=== PATIENT | male | born 1950 | race Caucasian/White ===

== ENCOUNTER 2020-05-19 09:33 | Emergency (ER) | payer MEDICARE ==
[~2020-05-19] VITALS: Ht 175.3 cm; Wt 80.7 kg
--- OUTSIDE RECORDS SUMMARY | 2020-05-19 10:08 | XMS REPORT | Clinical Summary ---
Author Author KAYA [facility] Address Unknown Phone Unavailable Care Team Providers Care Aircraft Armorer Name Role Phone Carrie Gaston MD PCP Unavailable Allergies No Known Allergies Medications End Date Status Medication Sig Dispensed Refills Start Date Active HYDROcodone-acetaminophen Take 1 tablet 0 01/07 (NORCO 10-325) 10-325 mg by mouth 9 per tablet every 4 (four) hours as needed . Active tamsulosin (FLOMAX) 0.4 Take 1 tablet 0 01/31/ mg Cap 24 hr capsule by mouth 2 9 (two) times daily. Active polyethylene glycol Take 17 g by 0 (GLYCOLAX) 17 gram packet mouth daily. Active ondansetron (ZOFRAN) 8 MG Take 8 mg by 0 tablet mouth daily as needed for Nausea . Active morphine (MSIR) 30 MG Take 60 mg by 0 tablet mouth every 4 (four) hours as needed for Pain . Active cloNIDine HCL (CATAPRES) Take 0.2 mg 0 0.2 MG tablet by mouth 2 (two) times daily as needed (for systolic BP > 140) . Active lisinopril-hydroCHLOROthi Take 1 tablet 0 azide by mouth (PRINZIDE,ZESTORETIC) daily. 20-12.5 mg per tablet Active celecoxib (CELEBREX) 200 Take 200 mg 0 MG capsule by mouth every 12 (twelve) hours as needed for Pain. Active senna-docusate (SENOKOT Take 1 tablet 30 tablet 0 S) 8.6-50 mg per tablet by mouth 2 0 (two) times daily as needed for Constipation. 06/30/2019 Discontinued bicalutamide (CASODEX) 50 Take 50 mg by 0 01/07201 MG tablet mouth daily. 9 06/30/2019 Discontinued lisinopril-hydroCHLOROthi Take 1 tablet 0 02/0 6201 azide by mouth 2 9 (PRINZIDE,ZESTORETIC) (two) times 20-25 mg per tablet daily . 06/30/2019 Discontinued bicalutamide (CASODEX) 50 Take 50 mg by 0 05/1 6201 MG tablet mouth daily. 9 04/26/2020 Discontinued senna (SENOKOT) 8.6 mg Take 1 tablet 0 tablet by mouth daily. 04/23/2020 Discontinued loratadine (CLARITIN Take by mouth 0 ORAL) daily. 04/26/2020 Discontinued acetaminophen (TYLENOL) Take 500 mg 0 500 MG tablet by mouth every 6 (six) hours as needed for Pain. 07/01/2019 Discontinued levoFLOXacin (LEVAQUIN) Take 500 mg 0 500 MG tablet by mouth daily. 07/01/2019 Discontinued lisinopril-hydroCHLOROthi Take 1 tablet 0 azide by mouth 2 (PRINZIDE,ZESTORETIC) (two) times 20-12.5 mg per tablet daily. 04/26/2020 Discontinued predniSONE (DELTASONE) 5 Take 5 mg by 0 MG tablet mouth 2 (two) times daily . 04/27/2020 Discontinued oxybutynin (DITROPAN) 5 Take 5 mg by 0 MG tablet mouth 3 (three) times daily . 07/01/2019 Discontinued celecoxib (CELEBREX) 200 Take 200 mg 0 MG capsule by mouth. Active Problems Problem Noted Date Acute lower GI bleeding 04/26/2020 Acute blood loss anemia 04/26/2020 Essential hypertension 04/26/2020 Prostate cancer metastatic to bone 04/26/2020 Chronic pain due to malignant neoplastic disease Chronic hepatitis C 04/26/2020 Chronic retention of urine s/p suprapubic catheter in place 04/26/2020 Resolved Problems Problem Noted Date Resolved Date Symptomatic anemia 04/23/2020 04/26/2020 GI bleed 04/23/2020 04/26/2020 NORMA (acute kidney injury) 07/01/2019 04/26/2020 Abnormal DKD-gv-pvcccrbeyi ratio, elevated 07/01/2019 04/26/2020 Encounters Care Team Description Date Type Specialty Mima Marrero MD 04/25/2020 Anesthesia Gastroenterology Maury Fuentes MD COLONOSCOPY,BIOPSY 04/25/2020 Surgery Gastroenterology Evelyn Lam MD UPPER ENDOSCOPY 04/24/2020 Surgery Gastroenterology Heidy Persaud, RICKY 04/24/2020 Anesthesia Gastroenterology Event 04/24/2020 Travel Marcelina Mcguire MD Lothian, Amy Catherine, MD Quadri, Syed M., MD Generalized weakness (Primary Dx); Other fatigue; Gastrointestinal hemorrhage, unspecified gastrointestinal hemorrhage type; Symptomatic anemia 04/23/2020 Hospital General Internal Tx dicine - Encounter 04/27/2020 04/23/2020 Orders Only General Internal Tx Dakota Romero MD Hite, Wayne K., DO NORMA (acute kidney injury) (HCC) (Primary Dx) 06/29/2019 Hospital Cardiology - Encounter 07/01/2019 06/29/2019 Travel after 05/19/2019 Social History Date Tobacco Use Types Packs/Day Years Used Unknown If Ever Smoked Smokeless Tobacco: Snuff Current User Sex Assigned at Date Recorded Not on file Industry Job Start Date Occupation Not on file Not on file Not on file Travel End Travel History Travel Start No recent travel history available. Last Filed Vital Signs Time Taken Vital Sign Reading 04/27/2020 7:58 AM CDT Blood Pressure 162/74 04/27/2020 7:58 AM CDT Pulse 68 04/27/2020 7:58 AM CDT Temperature 36.5 C (97.7 F) 04/27/2020 7:58 AM CDT Respiratory Rate 18 04/27/2020 7:58 AM CDT Oxygen Saturation 100% - Inhaled Oxygen - Concentration 07/01/2019 8:00 AM CDT Weight 82.4 kg (181 lb 9.6 oz) 06/30/2019 2:00 AM CDT Height 152.4 cm (5') 07/01/2019 8:00 AM CDT Body Mass Index 35.47 Plan of Treatment Not on file Procedures Comments Procedure Name Priority Date/Time Associated Diag nosis RHYTHM STRIP - SCAN 04/29/2020 12:20 PM CDT REPORT OF PROCEDURE - 04/29/2020 ENDOSCOPY SCAN 10:00 AM CDT HEMOGLOBIN AND HEMATOCRIT Routine 04/27/2020 4:16 AM CDT HEMOGLOBIN AND HEMATOCRIT Routine 04/26/2020 12:47 PM CDT CBC W/PLT COUNT & AUTO Routine 04/26/2020 DIFFERENTIAL 3:55 AM CDT CBC W/PLT COUNT & AUTO Routine 04/26/2020 DIFFERENTIAL 3:55 AM CDT TRANSFUSION SERVICE 04/25/2020 REPORT - SCAN 6:02 PM CDT REPORT OF PROCEDURE - 04/25/2020 ENDOSCOPY URL 11:56 AM CDT TISSUE EXAM AP Routine 04/25/2020 11:48 AM CDT COLONOSCOPY,BIOPSY 04/25/2020 Gastrointestinal 11:00 AM CDT hemorrhage associated with other gastritis HEMOGLOBIN AND HEMATOCRIT STAT 04/25/2020 10:49 AM CDT CBC W/PLT COUNT & AUTO Routine 04/25/2020 DIFFERENTIAL 4:16 AM CDT CBC W/PLT COUNT & AUTO Routine 04/25/2020 DIFFERENTIAL 4:16 AM CDT BASIC METABOLIC PANEL (7) Routine 04/25/2020 4:16 AM CDT PREPARE LEUKO-REDUCED RBC Routine 04/24/2020 11:54 PM CDT TRANSFUSION SERVICE 04/24/2020 REPORT - SCAN 6:02 PM CDT REPORT OF PROCEDURE - 04/24/2020 ENDOSCOPY URL 9:56 AM CDT REPORT OF PROCEDURE - 04/24/2020 ENDOSCOPY URL 9:53 AM CDT TISSUE EXAM AP Routine 04/24/2020 9:42 AM CDT COLONOSCOPY,BIOPSY 04/24/2020 Anemia, unspecifie d type 9:30 AM CDT UPPER ENDOSCOPY 04/24/2020 Anemia, unspecified type 9:30 AM CDT CBC W/PLT COUNT & AUTO Routine 04/24/2020 DIFFERENTIAL 5:18 AM CDT CBC W/PLT COUNT & AUTO Routine 04/24/2020 DIFFERENTIAL 5:18 AM CDT BASIC METABOLIC PANEL (7) Routine 04/24/2020 5:18 AM CDT HEMOGLOBIN AND HEMATOCRIT Routine 04/23/2020 10:59 PM CDT TRANSFUSE LEUKO-REDUCED Routine 04/23/2020 RED BLOOD CELLS 8:37 PM CDT SARS-COV2/RT-PCR ([facility] & STAT 04/23/2020 REF LABS) 1:18 PM CDT TRANSFUSE LEUKO-REDUCED Routine 04/23/2020 RED BLOOD CELLS 1:05 PM CDT TROPONIN I STAT 04/23/2020 1:02 PM CDT ABORH, MANUAL Routine 04/23/2020 5:27 AM CDT TROPONIN I STAT 04/23/2020 5:27 AM CDT TYPE AND SCREEN, STAT 04/23/2020 AUTOMATED 3:47 AM CDT ECG 12-LEAD Routine 04/23/2020 3:43 AM CDT CBC W/PLT COUNT & AUTO STAT 04/23/2020 DIFFERENTIAL 2:43 AM CDT PROTHROMBIN TIME/INR STAT 04/23/2020 2:43 AM CDT COMPREHENSIVE METABOLIC STAT 04/23/2020 PANEL 2:43 AM CDT CBC W/PLT COUNT & AUTO STAT 04/23/2020 DIFFERENTIAL 2:43 AM CDT RHYTHM STRIP - SCAN 07/07/2019 11:16 AM CDT BASIC METABOLIC PANEL (7) Routine 07/01/2019 6:02 AM CDT RAPID INFLUENZA A&B Routine 06/30/2019 SCREEN 4:11 PM CDT RESPIRATORY PANEL [facility] Routine 06/30/2019 4:06 PM CDT URINALYSIS W/ REFLEX Routine 06/30/2019 URINE CULTURE 2:51 AM CDT URINE CULTURE Routine 06/30/2019 2:51 AM CDT BLOOD CULTURE Routine 06/30/2019 2:20 AM CDT CBC W/PLT COUNT & AUTO Routine 06/30/2019 DIFFERENTIAL 2:10 AM CDT LACTIC ACID, VENOUS Routine 06/30/2019 2:10 AM CDT CBC W/PLT COUNT & AUTO Routine 06/30/2019 DIFFERENTIAL 2:10 AM CDT BASIC METABOLIC PANEL (7) Routine 06/30/2019 2:10 AM CDT BLOOD CULTURE Routine 06/30/2019 2:10 AM CDT after 05/19/2019 Results * RHYTHM STRIP - SCAN (04/29/2020 12:20 PM CDT) Only the most recent of 2 results within the time period is included. Narrative Performed At This result has an attachment that is n ot available. * EKG-SCANNED (04/29/2020 10:00 AM CDT) Narrative Performed At This result has an attachment that is n ot available. * Hemoglobin and hematocrit (04/27/2020 4:16 AM CDT) Only the most recent of 4 results within the time period is included. Hemoglobin 7.7 (L) 13.7 - 17.5 GM/DL [facility] Hematocrit 25.2 (L) 40.1 - 51.0 % [facility] Specimen Blood Narrative Performed At Cosmetics Machine Operator ID - [id number] [facility] Performing Organization Address City/State/Zipcode Ph one Number [address] [facility] [facility] * CBC with platelet count + automated diff (04/26/2020 3:55 AM CDT) Only the most recent of 5 results within the time period is included. WBC 3.8 3.5 - 10.5 K/L [facility] RBC 2.73 (L) 4.63 - 6.08 M/L [facility] Hemoglobin 7.1 (L) 13.7 - 17.5 GM/DL [facility] Hematocrit 23.5 (L) 40.1 - 51.0 % [facility] MCV 86.1 79.0 - 92.2 fL [facility] MCH 26.0 25.7 - 32.2 pg [facility] MCHC 30.2 (L) 32.3 - 36.5 GM/DL [facility] RDW 15.4 (H) 11.6 - 14.4 % [facility] Platelets 180 150 - 450 K/CU MM [facility] MPV 10.4 9.4 - 12.4 fL [facility] nRBC 0 0 - 0 /100 WBC [facility] % Neutros 77 % [facility] % Lymphs 12 % [facility] % Monos 8 % [facility] % Eos 3 % [facility] % Baso 1 % [facility] # Neutros 2.89 1.78 - 5.38 K/L [facility] # Lymphs 0.45 (L) 1.32 - 3.57 K/L [facility] # Monos 0.30 0.30 - 0.82 K/L [facility] # Eos 0.10 0.04 - 0.54 K/L [facility] # Baso 0.02 0.01 - 0.08 K/L [facility] Immature 1 0 - 1 % [facility] Granulocytes-Relative [facility] Specimen Blood Performing Organization Address City/State/Zipcode Ph one Number [facility] [address] [facility], [place] [facility] [facility] * TRANSFUSION SERVICE REPORT - SCAN (04/25/2020 6:02 PM CDT) Only the most recent of 2 results within the time period is included. Narrative Performed At This result has an attachment that is n ot available. * REPORT OF PROCEDURE - ENDOSCOPY URL (04/25/2020 11:56 AM CDT) Narrative Performed At This result has an attachment that is n ot available. * Tissue Exam (04/25/2020 11:48 AM CDT) Only the most recent of 2 results within the time period is included. Case Report Surgical Pathology [facility] TH Report [facility] Case: [id number] Authorizing Provider:Maury Beltran MDCollected: 04/25/2020 11:48 AM Ordering Location: [address] Received: 04/25/2020 03:45 PM Service Pathologist: Mihir Meade MD Specimen:Rectum, Rectum bx DIAGNOSIS RECTUM, BIOPSY: [facility] - CHRONIC RADIATION PROCTITIS [facility] Signing Pathologist Direct Phone Line: [phone] COMMENT Sections show rectal mucosa [facility] with mild increase in lamina [facility] propria fibrosis. There is no acute inflammation, architectural distortion, granulomas, dysplasia or malignancy. CPT Code(s) 76875 [facility] CLINICAL HISTORY GI bleed [facility] SPECIMEN SOURCE Rectum [facility] GROSS DESCRIPTION The specimen is received in [facility] one part labeled with the [facility] patient's name and MRN number corresponding to requisition slip with the same information. Received in formalin labeled "rectum" is a 0.3 x 0.2 x 0.2 cm santiago-pink irregular piece of tissue which is submitted entirely in cassette A1. MA/pl MICROSCOPIC DESCRIPTION The rectal biopsy shows [facility] nondysplastic colonic mucosa [facility] with dilated telengiectatic vessels and hyalinization. A fibrin thrombus is present in the superficial sections. Specimen Tissue Performing Organization Address City/State/Zipcode Ph one Number [address] [facility] * Basic Metabolic Panel (04/25/2020 4:16 AM CDT) Only the most recent of 4 results within the time period is included. Sodium 139 136 - 145 meq/L [facility] Potassium 4.4 3.5 - 5.1 meq/L [facility] Chloride 110 (H) 98 - 107 meq/L [facility] CO2 23 22 - 29 meq/L [facility] BUN 12 7 - 21 mg/dL [facility] Creatinine 1.06 0.57 - 1.25 mg/dL [facility] Glucose 86 70 - 105 mg/dL [facility] Calcium 7.6 (L) 8.4 - 10.2 mg/dL [facility] EGFR 69Comment: ESTIMATED GFR IS mL/min/1.73 sq m [facility] NOT ACCURATE CREATININE [facility] CLEARANCE IN PREDICTING GLOMERULAR FILTRATION RATE. ESTIMATED GFR IS NOT APPLICABLE FOR DIALYSIS PATIENTS. Specimen Blood Narrative Performed At Cosmetics Machine Operator ID - [id number] [facility] Performing Organization Address City/[facility] Ph one Number [facility] [address] [place], [place] [address] [facility] * Prepare Leuko-Red RBC (04/24/2020 11:54 PM CDT) CROSSMATCH COMPATIBLE SAFETRACE TX Unit ABO A Neg [facility]ET[facility] TX UNIT NUMBER [id number] [facility]ET[facility]ACE TX Status TX_TIMEINCHART [facility]ETRACE TX Blood Bank Product RED BLOOD CELLS SAFETRACE TX PRODUCT CODE [id number] SAFETRACE TX CROSSMATCH COMPATIBLE SAFETRACE TX Unit ABO A Neg SAFETRACE TX UNIT NUMBER [id number] SAFETRACE TX Status TX_TIMEINCHART SAFETRACE TX Blood Bank Product RED BLOOD CELLS [place] PRODUCT CODE [id number] [facility] [place] Specimen Other Performing Organization Address City/State/Zipcode Ph one Number [place] * REPORT OF PROCEDURE - ENDOSCOPY URL (04/24/2020 9:56 AM CDT) Narrative Performed At This result has an attachment that is n ot available. * REPORT OF PROCEDURE - ENDOSCOPY URL (04/24/2020 9:53 AM CDT) Narrative Performed At This result has an attachment that is n ot available. * Transfuse Leuko-Red RBC (04/23/2020 8:37 PM CDT) Only the most recent of 3 results within the time period is included. * SARS-CoV2/RT-PCR (Asymptomatic ONLY) (04/23/2020 1:18 PM CDT) SARS-COV2/RT-PCR Negative Not Detected, Negative, [facility] See external report for [facility] linked test SARS-COV-[address] [facility] MARTIR [facility] Specimen Other Narrative Performed At Negative result for this test determine s that SARS-CoV-2 RNA was not present in [facility] the specimen above the Limit of Detecti on (LOD).However, Negative results do [facility] not preclude SARS-CoV-2 infection and s hould not be used as the sole basis for treatment or patient management decisio ns. Negative results must be combined with clinical observations, patient his tory, and epidemiological information. A false negative result may occur if a sp ecimen is improperly collected, transported or handled.A false nega tive result should be considered if patient's recent exposures or clinical presentation indicate that COVID-19 (SARS-CoV-2) is likely and diagnostic t ests for other causes of illness are negative.Re-testing should be consi dered in cases of suspected false negatives. The limit of detection for this assay i s 800 copies/mL. This SARS CoV-2 test is a real-time RT- PCR test intended for the qualitative detection of nucleic acid from SARS-CoV -2 in a nasopharyngeal swab specimen collected from individuals suspected of COVID-19 by their healthcare provider. This test has not been Food and Drug Ad ministration (FDA) cleared or approved.This is a modified version of an approved Emergency Use Authorization (EUA) and is in the proce ss of review by the FDA. Once authorized by the FDA, the issued EUA w ill be effective until the declaration that circumstances exist justifying the authorization of the emergency use of in vitro diagnostic tests for detection an d/or diagnosis of COVID-19 is terminated under Section 564(b)(2) of the Act or t he EUA is revoked under Section 564(g) of the Act. Fact Sheet for Healthcare Providers: https://www.[employer]/sites/default/files/product/documents/Fact_Sheet_HC_Provi ipmi_Vhyr_YTRB-XkD-0.pdf Fact Sheet for Healthcare Patients: https://www.[employer]/sites/default/files/product/documents/Fact_Sheet_Patients _Glwh_FPXC-WrW-4.pdf Performing Laboratory: [address] [place] [address] Performing Organization Address City/[facility] one Number [place] [phone] [place] [address] * Troponin I (04/23/2020 1:02 PM CDT) Only the most recent of 2 results within the time period is included. Troponin I <0.01 0.00 - 0.03 ng/mL [facility] Specimen Blood Narrative Performed At Troponin I (TnI) levels must be interpreted in the co ntext of the presenting [facility] symptoms and the clinical findings. Elevated TnI leve ls indicate myocardial [facility] damage, but are not specific for ischem ic heart disease. Elevated TnI levels are seen in patients with other cardiac con ditions (including myocarditis and congestive heart failure), and slight T nI elevations occur in patients with other conditions, including sepsis, andres al failure, acidosis, acute neurological disease, and persistent tachyarrhythmia . Cosmetics Machine Operator ID - [id number] Performing Organization Address [facility] one Number [place] [address] [facility] * ABORH, manual (04/23/2020 5:27 AM CDT) ABO Grouping A [facility] Rh Factor NEG [facility] Specimen Blood Performing Organization Address [facility] Ph one Number [address] [place] [address] * Type and screen, automated ([facility] and [facility] only) (04/23/2020 3:47 AM CDT) ABO/RH AUTOMATED (BEAKER) A NEGATIVE [facility] Ab Scrn NEGATIVE [facility] Specimen Blood Performing Organization Address [facility] Ph one Number [id number] [place] [address] * ECG 12 lead (04/23/2020 3:43 AM CDT) Specimen Narrative Performed At Ventricular Rate 67 BPM GE MUSE Atrial Rate 67 BPM P-R Interval 214 ms QRS Duration 90 ms Q-T Interval 398 ms QTC Calculation(Bazett) 420 ms P [place] 90 degrees R [place] 51 degrees T [place] 52 degrees Sinus rhythm with 1st degree A-V block Otherwise normal ECG No previous ECGs available Confirmed by MD FLORES YOCHAI ([id number] ) on 04/26/2020 5:49:09 PM Procedure Note Interface, External Ris In - 04/26/2020 5:49 PM CDT Ventricular Rate 67 BPM Atrial Rate 67 BPM P-R Interval 214 ms QRS Duration 90 ms Q-T Interval 398 ms QTC Calculation(Bazett) 420 ms P [place] 90 degrees R [place] 51 degrees T [place] 52 degrees Sinus rhythm with 1st degree A-V block Otherwise normal ECG No previous ECGs available Confirmed by MD FLORES YOCHAI ([id number]) on 04/26/2020 5:49:09 PM Performing Organization Address [facility] Ph one Number GE MUSE * PT/INR (04/23/2020 2:43 AM CDT) Protime 14.4 (H) 11.9 - 14.2 seconds [facility] INR 1.15 <=5.90 [facility] Specimen Blood Narrative Performed At Effective 02/04/2019: PT Reference Range Change [facility] New: 11.9-14.2Previous: 11.7-14.7 [facility] MEDICAL CE NTER RECOMMENDED COUMADIN/WARFARIN INR THERA PY RANGES STANDARD DOSE: 2.0-3.0Includes: PRO PHYLAXIS for venous thrombosis, systemic embolization; TREATMENT for venous thro mbosis and/or pulmonary embolus. HIGH RISK: Target INR is 2.5-3.5 for pa tients wiht mechanical heart valves. Performing Organization Address City/State/Zipcode Ph one Number [address] [facility] * Comprehensive metabolic panel (04/23/2020 2:43 AM CDT) Protein, Total 6.5 6.0 - 8.3 gm/dL [facility] Albumin 3.3 (L) 3.5 - 5.0 g/dL [facility] Alkaline Phosphatase 71 40 - 150 U/L [facility] Total Bilirubin 0.2 0.2 - 1.2 mg/dL [facility] Sodium 136 136 - 145 meq/L [facility] Potassium 4.2 3.5 - 5.1 meq/L [facility] Chloride 106 98 - 107 meq/L [facility] CO2 23 22 - 29 meq/L [facility] BUN 22 (H) 7 - 21 mg/dL [facility] Creatinine 1.19 0.57 - 1.25 mg/dL [facility] Glucose 129 (H) 70 - 105 mg/dL [facility] Calcium 8.0 (L) 8.4 - 10.2 mg/dL [facility] AST 20 5 - 34 U/L [facility] ALT 9 6 - 55 U/L [facility] EGFR 61Comment: ESTIMATED GFR IS mL/min/1.73 sq m [facility] NOT ACCURATE CREATININE [facility] CLEARANCE IN PREDICTING GLOMERULAR FILTRATION RATE. ESTIMATED GFR IS NOT APPLICABLE FOR DIALYSIS PATIENTS. Specimen Blood Narrative Performed At Cosmetics Machine Operator ID - [id number] [facility] Performing Organization Address [facility] Ph one Number [facility] [address] [place] [address] [facility] * Rapid Influenza A&B Screen (06/30/2019 4:11 PM CDT) Rapid Influenza A Antigen Negative Negative, Inconclusi ve [facility] Rapid influenza B Antigen Negative Negative, Inconclusi ve [facility] Specimen Nasal Performing Organization Address [facility] Ph one Number [facility] [address] [place] [address] [facility] * Respiratory Panel [facility] (06/30/2019 4:06 PM CDT) Human Metapneumovirus Not detected Not detected, Equivocal [facility] Rhinovirus Not detected Not detected, Equivocal [facility] Influenza A Not detected Not detected, Equivocal [facility] INFLUENZA A (NO SUBTYPE) [facility] Influenza A subtype H1 [facility] Influenza A Subtype H3 [facility] Influenza A Subtype [facility] H1-2009 [facility] Influenza B Not detected Not detected, Equivocal [facility] Respiratory Syncytial Not detected Not detected, Equivocal [facility] Virus [facility] Parainfluenza Virus 1 Not detected Not detected, Equivocal [facility] Parainfluenza Virus 2 Not detected Not detected, Equivocal [facility] Parainfluenza virus 3 Not detected Not detected, Equivocal [facility] Parainfluenza Virus 4 Not detected Not detected, Equivocal [facility] Adenovirus Not detected Not detected, Equivocal [facility] Coronavirus 229E Not detected Not detected, Equivocal [facility] Coronavirus HKU1 Not detected Not detected, Equivocal [facility] Coronavirus NL63 Not detected Not detected, Equivocal [facility] Coronavirus OC43 Not detected Not detected, Equivocal [facility] [facility] Bordetella Pertussis Not detected Not detected, [facility] Chlamydophila Pneumoniae Not detected Not detected, Equivoc al [facility] Mycoplasma Pneumoniae Not detected Not detected, [facility] Specimen Nasopharyngeal Narrative Performed At Other viruses and bacteria not targeted by this PCR p olya cannot be excluded; [facility] therefore clinical correlation and follow up of serol ogy, culture results, and [facility] other molecular studies is required. Th e results are not intended to be used as the sole means for clinical diagnosis o r patient management decisions. This sample was tested at the [facility] using the TrademarkiaArray Respiratory Panel. It is FDA cleared and has been verified and approved by the [facility] Molecular Diagnos tics Laboratory for clinical use on nasopharyngeal swab specimens. The performance of the FilmArray RP has not been established in individuals who received influenza vaccine.Recent a dministration of a nasal influenza vaccine may cause false positive result s for Influenza A and/or Influenza B. Performing Organization Address City/State/Zipcode Ph one Number [facility] [address] [place], [place] [address] [facility] * Urinalysis w/Microscopic + Reflex to Culture (06/30/2019 2:51 AM CDT) Color, UA Yellow [facility] Clarity, UA Hazy [facility] Specific [place], UA 1.021 1.001 - 1.035 [facility] pH, UA 6.0 5.0 - 8.[address] [facility] Protein, UA 200 mg/dL (A) Negative [facility] Glucose, UA Negative Negative [facility] Ketones, UA Negative Negative [facility] Bilirubin, UA Negative Negative [facility] Blood, UA Moderate (A) Negative [facility] Nitrite, UA Negative Negative [facility] Leukocytes, UA Large (A) Negative [facility] Urobilinogen, UA 0.2 0.2 - 1.0 mg/dL [facility] RBC, UA 20 /HPF [facility] WBC, UA 77 /HPF [facility] Mucus Few [facility] Squam Epithel, UA 1 /HPF [facility] Hyaline Casts, UA 6 /LPF [facility] Specimen Source [facility] Specimen Urine - Urine, Suprapubic Aspirate Performing Organization Address [facility] one Number [place] [address] [facility] * Urine culture (06/30/2019 2:51 AM CDT) Result No growth [facility] Specimen Urine - Urine, Suprapubic Aspirate Performing Organization Address City/[facility] [place] one Number [place] [address] [facility] * Blood Culture - Routine (Left Venipuncture) (06/30/2019 2:20 AM CDT) Only the most recent of 2 results within the time period is included. Result No growth in [address] [facility] Specimen Blood Performing Organization Address City/[facility]/Zipcode Ph one Number [facility] [address] [place], [place] [address] [facility] [place] * Lactic acid, venous (06/30/2019 2:10 AM CDT) Lactate, Venous 1.3 0.5 - 2.2 mmol/L [facility] Specimen Blood Performing Organization Address City/[facility] Ph one Number [facility] [address] [place], [place] [address] [facility] CENTER after 05/19/2019 Insurance Payer Benefit Subscriber ID Type Phone Address Plan / Group [employer] K[employer]ARE xxxxxxxxxxx MEDICARE ADV CDC REVIEW CDC REVIEW xxxxxxxx [address] [place] [address] [phone] Advance Directives For more information, please contact: [address] [phone] Date Inactivated Comments Code Status Date Activated 04/27/2020 12:28 PM Full Code 04/23/2020 5:08 AM This code status was determined by: Patient 07/01/2019 7:17 PM Partial Code 06/30/2019 1:11 AM This code status was determined by: Patient Drug Protocol After Arrest Occurs? Yes Mechanical Ventilation with Intubation? No Bag/Mask? No Internal/External Pacemaker? No Transfer to Critical Care? No Chest Compressions? No Defibrillation/Cardioversion? No
--- OUTSIDE RECORDS SUMMARY | 2020-05-19 10:08 | XMS REPORT | Continuity of Care Document ---
Author Author [facility] t Organization [facility] Address [address] [place] [address] Phone Unavailable Care Team Providers Care Cardiovascular Technologist Name Role Phone NONSTAFF PCP Unavailable Shayla BENNETT, Jennifer Hewitt Attphys [phone] Jess Denise MD Attphys [phone] Freddy Givens MD Attphys Vikram Marrero MD Attphys Kasia Beltran MD Attphys Cindi Persaud CRNA Attphys [phone] Kasia Lam MD Attphys JENNIFER MCGUIRE Attphys Unavailable CARIN ANN Attphys Unavailable Carin Ann MD Attphys Maria G Shah DO Attphys PB NOBLE Attphys Unavailable VU, BRETT TRI Attphys Unavailable JESS DENISE Admphys Unavailable Maria G SHAH Admphys Unavailable VU, BRETT TRI Admphys Unavailable Payers Payer Name Policy Type Policy Number Effective Date Expiration Date Heather MURRAYCAREKELSEYCARE MEDICARE ADVxxxxxxxxxxx xxxxxxxxxxx [facility] CDC REVIEWC REVIEWxxxxxxxxPO MARIYA HERNANDEZ [phone] [facility] [employer] Medicare Advantage [id number] 2016 00:0 0:00 [facility] Problems Condition Name Condition Details Condition Category Status Onset Date Resolution Date Last Treatment Date Treating Clinician Comments Source Acute lower GI bleeding Acute lower GI bleeding Disease Active 2020-04-26 00:00:00 [facility] Acute blood loss anemia Acute blood loss anemia Disease Active 2020-04-26 00:00:00 [facility] Essential hypertension Essential hypertension Disease Active 2020-04-26 00:00:00 [facility] 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 Disease Active 2020-04-26 00:00:00 [facility] Chronic pain due to malignant neoplastic disease Chron ic pain due to malignant neoplastic disease Disease Active 2020-04-26 00:00:00 [facility] Chronic hepatitis C Chronic hepatitis C Disease Active 2020-04-26 00:00 :00 [facility] Chronic retention of urine s/p suprapubic catheter in place Chronic retention of urine s/p suprapubic catheter in place Disease Active 2020-04-26 00:00:0 0 [facility] Symptomatic anemia Symptomatic anemia Disease Resolved 2020-04-09 5 00:00:00 2020-04-26 00:00:00 2020-04-26 08:53:52 [facility] GI bleed GI bleed Disease Resolved 2020-04-23 00:00:00 2020-04-26 00:00:00 2020-04-26 08:53:36 [facility] History of Past Illness Condition Name Condition Details Condition Category Status Onset Date Resolution Date Last Treatment Date Treating Clinician Comments Source NORMA (acute kidney injury) NORMA (acute kidney injury) Disease Re solved 2019-07-01 00:00:00 2020-04-26 00:00:00 2020-04-26 08:52:48 [facility] Abnormal MHD-wm-dghgghsdva ratio, elevated Abnormal BU H-sb-wymtgqefsm ratio, elevated Disease Resolved 2019-07-01 00:00:00 2020-04-26 00:00:00 2 08:52:50 [facility] Allergies, Adverse Reactions, Alerts Allergy Name Allergy Type Status Severity Reaction(s) Onset Date Inacti ve Date Treating Clinician Comments Source No Known Allergies DA Active U 2019-04-26 00:00:00 [facility] No Known Allergies DA Active U 2013-03-23 00:00:00 [facility] Social History Social Habit Start Date Stop Date Quantity Comments Source History of tobacco use Snuff User [facility] Sex Assigned At [facility] Medications Ordered Medication Name Filled Medication Name Start Date Stop Da te Current Medication? Ordering Clinician Indication Dosage Frequency Signature (SIG) Comments Components Source oxybutynin (DITROPAN) 5 MG tablet 2020-04-27 09:34:00 2019 00:00:00 No 5mg [id number] Take 5 mg by mouth 3 (three ) times daily . [facility] senna-docusate (SENOKOT S) 8.6-50 mg per tablet 2020-04-27 00:00 :00 Yes 1{tbl} Take 1 tablet by mouth 2 (two) times edwin ly as needed for Constipation. [facility] senna (SENOKOT) 8.6 mg tablet 2020-04-26 11:57:40 2020-04-26 00: 00:00 No 1{tbl} QD Take 1 tablet by mouth daily. [facility] ondansetron (ZOFRAN) 8 MG tablet 2020-04-26 11:57:32 Yes 8mg Take 8 mg by mouth daily as needed for Nausea . [facility] morphine (MSIR) 30 MG tablet 2020-04-26 11:57:32 Yes 60mg Take 60 mg by mouth every 4 (four) hours as needed for Pain . [facility] cloNIDine HCL (CATAPRES) 0.2 MG tablet 2020-04-26 11:57:32 Yes .2mg Take 0.2 mg by mouth 2 (two) times daily as needed (for systolic BP > 140) . [facility] predniSONE (DELTASONE) 5 MG tablet 2020-04-26 11:57:31 202 00:00:00 No 5mg Q.5D Take 5 mg by mouth 2 (two) times daily . [facility] acetaminophen (TYLENOL) 500 MG tablet 2020-04-26 11:55 :09 2020-04-26 00:00:00 No 500mg Take 500 mg by mouth every 6 (six) hours as needed for Pain. [facility] lisinopril-hydroCHLOROthiazide (PRINZIDE,ZESTORETIC) 20-12.5 mg per tablet 2020-04-23 05:05:19 Yes 1{tbl} QD Take 1 tablet by m outh daily. [facility] celecoxib (CELEBREX) 200 MG capsule 2020-04-23 05:05:19 Yes 200mg Take 200 mg by mouth every 12 (twelve) hours as needed for Pain. [facility] loratadine (CLARITIN ORAL) 2020-04-23 05:02:52 2020-04-23 00:00: 00 No QD Take by mouth daily. [facility] levoFLOXacin (LEVAQUIN) 500 MG tablet 2019-07-01 14:34 :11 2019-07-01 00:00:00 No 500mg QD Take 500 mg by mouth daily. [facility] lisinopril-hydroCHLOROthiazide (PRINZIDE,ZESTORETIC) 20-12.5 mg per tablet 2019-07-01 14:34:11 2019-07-01 00:00:00 No 1{tbl} Q.5D Take 1 tablet by mouth 2 (two) times daily. [facility] celecoxib (CELEBREX) 200 MG capsule 2019-07-01 14:34:1 1 2019-07-01 00:00:00 No 200mg Take 200 mg by mouth. [facility] polyethylene glycol (GLYCOLAX) 17 gram packet 2019-06-29 22:45:2 1 Yes 17g QD Take 17 g by mouth daily. [facility] tamsulosin (FLOMAX) 0.4 mg Cap 24 hr capsule 2019-01-31 00:00:00 Yes 1{tbl} Q.5D Take 1 tablet by mouth 2 (two) times daily. [facility] bicalutamide (CASODEX) 50 MG tablet 2019-01-25 00:00:0 0 2019-06-30 00:00:00 No 50mg QD Take 50 mg by mouth daily. [facility] HYDROcodone-acetaminophen (NORCO 10-325) 10-325 mg per table t 2019-01-22 00:00:00 Yes 1{tbl} Take 1 tab let by mouth every 4 (four) hours as needed . [facility] bicalutamide (CASODEX) 50 MG tablet 2019-01-22 00:00:0 0 2019-06-30 00:00:00 No 50mg QD Take 50 mg by mouth daily. [facility] lisinopril-hydroCHLOROthiazide (PRINZIDE,ZESTORETIC) 20-25 m g per tablet 2018-10-15 00:00:00 2019-06-30 00:00:00 No 1{tbl} Q.5D Take 1 tablet by mouth 2 (two) times daily . [facility] Vital Signs Vital Name Observation Time Observation Value Comments Source Systolic blood pressure 2020-04-27 07:58:00 162 mm[Hg] [facility] Diastolic blood pressure 2020-04-27 07:58:00 74 mm[Hg] [facility] Heart rate 2020-04-27 07:58:00 68 /min [facility] Body temperature 2020-04-27 07:58:00 36.5 Chela [facility] Respiratory rate 2020-04-27 07:58:00 18 /min [facility] Oxygen saturation in Arterial blood by Pulse oximetry 04-27 07:58:00 100 /min [facility] r Body weight Measured 2019-07-01 08:00:00 82.373 kg [facility] BMI 2019-07-01 08:00:00 35.47 kg/m2 [facility] Body height 2019-06-30 02:00:00 152.4 cm [facility] Procedures Procedure Date / Time Performed Performing Clinician Sourc e RHYTHM STRIP - SCAN 2020-04-29 12:20:32 Provider, Coby garcia [facility] REPORT OF PROCEDURE - ENDOSCOPY SCAN 2020-04-29 10:00:52 Pro vider, Default Scanning [facility] HEMOGLOBIN AND HEMATOCRIT 2020-04-27 04:16:00 ToshaDavis Estelle [facility] HEMOGLOBIN AND HEMATOCRIT 2020-04-26 12:47:00 Tosha Davis Freddy [facility] CBC W/PLT COUNT & AUTO DIFFERENTIAL 2020-04-26 03:55:00 Tosha, Davis [facility] TRANSFUSION SERVICE REPORT - SCAN 2020-04-25 18:02:04 Provid er, Default Scanning [facility] REPORT OF PROCEDURE - ENDOSCOPY URL 2020-04-25 11:56:02 Maury Beltran [facility] TISSUE EXAM 2020-04-25 11:48:00 Maury Beltran [facility] COLONOSCOPY,BIOPSY 2020-04-25 11:00:00 Maury Beltran [facility] HEMOGLOBIN AND HEMATOCRIT 2020-04-25 10:49:00 Tosha Davsi Estelle [facility] BASIC METABOLIC PANEL (7) 2020-04-25 04:16:00 Alyse Denise [facility] CBC W/PLT COUNT & AUTO DIFFERENTIAL 2020-04-25 04:16:00 Alyse Denise [facility] PREPARE LEUKO-REDUCED RBC 2020-04-24 23:54:00 Marcelina Mcguire [facility] TRANSFUSION SERVICE REPORT - SCAN 2020-04-24 18:02:04 Provid er, Default Scanning [facility] REPORT OF PROCEDURE - ENDOSCOPY URL 2020-04-24 09:56:11 Tiago Lam [facility] REPORT OF PROCEDURE - ENDOSCOPY URL 2020-04-24 09:53:57 Tiago Lam [facility] TISSUE EXAM 2020-04-24 09:42:00 Evelyn Lam [facility] UPPER ENDOSCOPY 2020-04-24 09:30:00 Evelyn Lam [facility] COLONOSCOPY,BIOPSY 2020-04-24 09:30:00 Evelyn Lam [facility] BASIC METABOLIC PANEL (7) 2020-04-24 05:18:00 Evita, Sophy Patricia garcia [facility] CBC W/PLT COUNT & AUTO DIFFERENTIAL 2020-04-24 05:18:00 Evita Pedro welchn Effiong [facility] HEMOGLOBIN AND HEMATOCRIT 2020-04-23 22:59:00 Evita, Sophy Patricia [facility] TRANSFUSE LEUKO-REDUCED RED BLOOD CELLS 2020-04-23 20:37:33 Marcelina Mcguirebeth [facility] SARS-COV2/RT-PCR ([facility]) 2020-04-23 13:18:00 Donal Fournier [facility] TRANSFUSE LEUKO-REDUCED RED BLOOD CELLS 2020-04-23 13:05:57 [facility] 2020-04-23 13:02:00 Marcelina Mcguire [facility] TROPONIN I 2020-04-23 05:27:00 Marcelina Mcguire [facility] ABORH, MANUAL 2020-04-23 05:27:00 Heidy Mcclendon [facility] TYPE AND SCREEN, AUTOMATED 2020-04-23 03:47:00 Marcelina Mcguire [facility] ECG 12-LEAD 2020-04-23 03:43:53 Unknown, Hl7 [facility] COMPREHENSIVE METABOLIC PANEL 2020-04-23 02:43:00 Karen Gillespie [facility] PROTHROMBIN TIME/INR 2020-04-23 02:43:00 Misbah Gillespie [facility] CBC W/PLT COUNT & AUTO DIFFERENTIAL 2020-04-23 02:43:00 MichaelMisbah geronimo [facility] RHYTHM STRIP - SCAN 2019-07-07 11:16:12 ProviderCoby [facility] BASIC METABOLIC PANEL (7) 2019-07-01 06:02:00 Hipolito Shah CH I [facility] RAPID INFLUENZA A&B SCREEN 2019-06-30 16:11:00 Hipolito Shah HI [facility] RESPIRATORY PANEL [facility] 2019-06-30 16:06:00 Hipolito Shah [facility] URINE CULTURE 2019-06-30 02:51[facility]00 [facility]IN[facility] W/ REFLEX URINE CULTURE 2019-06-30 02:51:00 Heather [facility] BLOOD CULTURE 2019-06-30 02:20:00 Bean [facility] BLOOD CULTURE 2019-06-30 02:10:00 [facility] BASIC METABOLIC PANEL (7) 2019-06-30 02:10:00 Melanie [facility] LACTIC ACID, VENOUS 2019-06-30 02:10:00 [facility] CBC W/PLT COUNT & AUTO DIFFERENTIAL 2019-06-30 02:10:00 Bean [facility] Encounters Start Date/Time End Date/Time Encounter Type Admission Type Attendi [facility] Care Department Encounter ID Source 2019-06-29 18:36:00 2019-06-29 21:37:00 Departed Emergency Room 1 PB NOBLE [facility] [id number] [facility] Results Test Description Test Time Test Comments Results Result Comments Source Hemoglobin and hematocrit 2020-04-27 04:43:00 Test Item Hemoglobin (test code = 786-4) 7.7 13.7- 17.5 GM/DL L Hematocrit (test code = 4544-3) 25.2 % 40.1-51 L RAMIREZ (test code = RAMIREZ) Detention Deputy ID - [id number] Lab Interpretation (test code = 46254-3) Abnormal [facility] [id number] 04:43:00* Test Item Value Reference Range Interpretation Comments HEMOGLOBIN (BEAKER) (test code = 410) 7.7 GM/DL 13.7-17.5 L HEMATOCRIT (BEAKER) (test code = 411) 25.2 % 40.1-51.0 L Detention Deputy ID - [id number] 12 [id number] 17:49:11Interface, External Ris In - 04/26/2020 5:49 PM CDTVentricular Rate 67 BPMAtrial Rate 67 BPMP-R Interval 214 msQRS Duration 90 msQ-T Interval 398 msQTC Calculation(Bazett) 420 msP [place] 90 degreesR [place] 51 degreesT [place] 52 degreesSinus rhythm with 1st degree A-V blockOtherwise normal ECGNo previous ECGs availableConfirmed by MD MARK, CRISTOPHER ([id number]) on 04/26/2020 5:49:09 [facility] [id number] 13:09:00* Test Item Value Reference Range Interpretation Comments HEMOGLOBIN (BEAKER) (test code = 410) 7.5 GM/DL 13.7-17.5 L HEMATOCRIT (BEAKER) (test code = 411) 24.2 % 40.1-51.0 L Detention Deputy ID - [id number] [id number] 12:47:00* Test Item Value Reference Range Interpretation Comments Case Report (test code = 104) Surgical Pathology Repor t Case: [id number] Authorizing Provider: Maury Beltran MD Collected: 04/25/2020 11:48 AM Ordering Location: [address] Received: 04/25/2020 03:45 PM Service Pathologist: Mihir Meade MD Specimen: Rectum, Rectum bx DIAGNOSIS (test code = 3220) o9fjcGDtHVGez1tqCENdzAMkVkHcRrChUjDoGmtqhTBuJUcuhqOnXLkez0UvJ4VlGsBhCFaiwtPlECKj ApixtachLUBmSIK2roOlZCZeTFikMHSfRGmtPm0ruSMbfUplYuGbBCOoc8nwypDLycxgwRw4q7beEIIo BaG9pTIzHSgxA4cnwjZhbCNwDABjYXg8cZ67UDZkoZ 0fcONfETrbpcNdBcO8JRdmCDUrRbN0BVTxzDChNWFpC0tuAGIdQIhwZFZyDShtbAJlRXH2zVcis1P0xZ WomNOjcOgeQrYmFkDuGWPTr9CiRMu0kBpfX3OsIPOgQdC6vLOqXFDtKIktKDAeQSMamqK8jZ02GCgxdw R8eSPum6Wky17sa493fB9zgZHvMYU3UTUjMGEaaQAs PHAcIFZ2UIKoaBYhA6o1QhUfoJLlK8N9WzSqsCJwC1U0TkOihROqL9I9XsVtjKQnWSTluQEnLf5naYOt mMPakq5qfy72QXT7j6HqrDmbHMO1SYF2FrWrWd3upYZhUEMnVT2lRfGuxICoJMQuga55cCutTUcnjqPi wB7rBuOiFFFtjMEuSAGkFY1dpFByEGKkzH4eejydRV GbYqTmguoeRUKubHylgaJlCu3arPqvBCU8HGpuE0bbyO4xNbP7WRdfO5ivpK5dDIc2LOqspMF5GEBcfP 9iFR1cmxree9zwZaGpGW5abtade0ryUlJjHK5fzsb6e1jhWgIqRV1hhkinb2gaTnZwVHevJMQasufvGI Ste0RfrovvEZHkn1WaG3HugYkmP54xsSmdT14hLQMq mPozzE2qcXpdrK2hTzNnWyTlNPojiGbejZFhnacqIEdoliZsUOpjixepOPNiRSjfM7snOdHpAPWgeVzs TPaez5BoUMXaPECwBqEyKaYWXKRMXXCBLX2JR1s6OGDdhjOgZLUHPv5QSKSjVdUUJNQYLZ3XFPBVI1KS XEBNU3tcGWV9k8acgKIxYQFuvEQfVKNtMFyoagUnQZ WmRzxribedXSSqYWK4hoPxDWCnESjfJPUxATrpJz9jhWLhlGmmIpKfTQWoy7ikxtKTaprbpSl6m9frPU JdBsZ3eRPhBDhoB9ohrnOcaNFkYVRjIHy8iC80QASnpL9eaQUsIEumhjTqPqX3UDqeKZBlHcD1NZCuvI LkGKAgI2jbSBMpUNdjLEOzLTcqwROpGIZ9oLtst3J7 mXYakPYvdHbhAuIjKxLoYlHCp9DhJRu4bIiwR2KaMFAePhI6uWOyZEYiEOtnAFMsZWNznaA1qF71QSyv udD1yWTrp4Tbc27ty136mI4eeWWnLHY5YVJrXXZnvOAtUAFtDGB1LMXcxQGmM8ggSNXlRR4hkdozNIva WDtfCEMvhGJ7ZWZdrZNoL5MjKQGiVQtcHGIunuu4Ee WqUu7liQCbiWsxOQaeq8luq1qyyBWbXyp5HLUcCnYuFrxsSRcnl2Svh3wtWLNfls8xKPJ3oNAalZrur0 E8nRDaWLJcwAErIXIrVI5epHEwKGStsM9pppahATEmKhMjpnxyNHWwtXthdxTyPu7lfYvdMWU2THclS5 wxwY3yTpK2AKgkG1zpgV3eUNc7ZHbrGXWegND9gsJ8 SOMtuRBaS4ZpzV5lHHBdTH8juoj3c3igPOD0CTfbLFWmJsV5ynO3FCUzvPLuXWJxtVifSSyyw698MPM7 ThTkCIYow9NwS3BxoYgtY37ndGdkJ75cOKPjcVszuC2feOaimM8zArMzFkFbYStveWvgIY7oZKDqV9ge fVKcYFKnOILsN3dcAfIozA5vfCthSZegyiOfLKVzCh d7WELogITjZLJoJcw8QEVhKIXiS55nwpvbYOI8iB8ch0lar6RkJWnlXSK0PPVze53rTNrzhuI0IVraBw 6iAtBkCJQ2FJhhOSQ9wW== COMMENT (test code = 3359) r4sibVBlLFQhdWLsGmJgJOHjYTPlu6ebELThmJPtTvTaYoTjGgKyGowbzZGmPEDnStDal7fkr871vSKu h6xwNSCxGzQ8kZNbDEKyjWFdM195ARSzWExfa2jch8RlSWTubHByy9T2NXOTypullGy6mQugS58rf4Z4 PbztH1bgYYIwCYYlM2QpIR5yTGTtJfl4LAD4YFE8LN HgCKNrD9GzTK6wEZGobQFyRAc5r8qbiLpgFTXiFSW7l9rcNXqxicGlRE6qlg3jzFd3m4byvzKuXVZoVS UhrDWGDCBzX1QogMghMr8koWj8zJnlHwjqULQ3Nao8HR4qyv06nsf2xEenLWMuiyyiHbW2ECkdZSFpvx rdRGx1XUrlLFFifOoiEEulDZNinnfcEGgaFRYaiIkd KDnuAPAqSydbSDzqCZStMRF8EEwuq737OPC0MVipk0rpw2mutGMoXwo5MGJzUpLeLqtlCGtnn0Tmh5ay NOKzcz0pYIZ0uOOpzDvln7I9jVGiPZFxzZQixoRkEABpfb22mWFjtQUqaHCrgu8wudEgvJNnaFPvERZ8 uRKzmxPtAVDhlNFaRSLjGXNgE3kkUnXzrzHmG8jxG5 BhPDRuZPBqAKXcJjNelkDmx6Jzk5DsxHRoqUe3n3ztGAWcWDDnqFmps8uqORQ3JAEfW2M8yHCeu1tzEI noIJHyqNA6wzatULmgBDHemlZ0xrgpAGqkKLAgxYV7ukitLYehNHLdLzN1mqkjYAwyEWMzZFT9WLejj3 40FNJ7FKjnCpkvIQveVBOfegBhysPsmDmhXQEcYPLy YXciKOOqZYkpMVIgRHFlZmZkiACfFHgjfHLmvlqdGGpgweCsEMhsyzbrUMEpVKeeT9bsNoPwDOGefQnz QCprl2JmGQVnZERkQjEdQ5OhyOwafvZwu4sssaDlVIF3NSobwNYgc3OjJBihxBfgcVwdZQZzxbLgEIIw ZENlimZjGF0zioDcjCUusTZlSCCmxOZkn5Bopo2yEP vcarPquHQwbq1hDDS3lJWmdS8vtXLpnTN8lQ7qIQMqyrVqrHHnT8P4mmFwQEZop5VmwsYis82yDSdpFU 84cP9uTSQeWQF5e2WgCVWwVFYmpeLgWPycK57nmgG5RnyhKYM3 CPT Code(s) (test code = 3357) q4vxhKVmZMTdmQZuMxRfTYWhOEIix3huWOWfgYXaIlVkCgEfMrZoIysleMGjQEQzOePeh2hzm457jXCk d5omSLDoYxA8wZNtUYFamZIoU150n3xxm6xqhuYlmZX7JKHjCSG1LUmnruXetvK8KBtrmACaIjC9RYeh usYmMEakqcIlikLyFfz1EXSfX085LII6eBveg1lmNY Q3JJYdRGTyAkFyZg1frMPgI859ZVKjHVTNWMGpbSb7WWCfxrFlanBecIDJx386A892o7rcGVInloPozX kTrgzei4osU799WEDvjQCwdrSpOdBiXSMywXDkzLL0SAItIZ7pzunxIsZtFP3uxxviLjPkCN8ahbt1Js HuQP2emdbjYuHsYUjxIGCnlspzOZDei3FmuribDF6r U1Clu5V7mJ0jyQMuKKTvzBGhWqVsUSVmpw4deSXlTDuck6YxRWT8myC4aPLsfKIvIMNrNS55Myash1Ln UzqqTJA5QNUdtyXch4Qfd4lyHjPztqItP6whV7AiDFCtDRBgFMFfDeWsogQlb6Wjw4UzsJEkeZp0n4ds SJXvUCSfjBdnc4kuHZY4PNDtA8Q7bUPrb1ovPFacDR EgqYM4xfsjEYzrDMXppkA0qbxnVTkzSRKepMU2wlygUGliTLClBaJ3qseeJDzjQFCkLZG7MNxbc059FB Y5XNloXynhLCsqBCDpnwItxwYebQvsRLUiXMQbUJacULSdUNocXDGfAMNkAdRmfBfogGcatY6pAbIuMz QcCLumWT1eJDZcP4djgOEuBTUxQBZsD3tqHxAniB4scDlpSMipraApFDf0PqO9KVKxlg3= CLINICAL HISTORY (test code = 3356) n9hjgIQvJEXmzPOySwAmVBOtAQRsr0ngHSOjdGBpUaZjKnBzNwVkQajqnMGpCPFiZcMll9ylv257rEIg j1fvPEOnIkZ6lKBhGTYsjXGlF847l8qva7qqqfPpoSN5CTGpWTJ2DLxfsmCchzE6JHwsySMdZnQ7LVab rwVeQRvpbpKrbzWdKia0SOJtM655RQN3rQmhp5koFV F7UDMjDZEiHvSiDz1fgWFxN564QOVbLBBFFIWpmIx8JTIitaVdeqZakEDQe781K923f3vdDDSkyaVrtC eCwcnbx2dgT163ZEAlhTAkmsJaBrGkOGApyNZfmHI8DVZmMZ9xxfigDbBfNW7hzwgeUbBtKN0ntne3Fs SoQZ5cnpasOaSmNLktSOQjtnibOQFgg1PpeepeMV9h P8Lle5R4jN6lyKEyZQDkwLJrBhNxIDZtwh0uiYQhYKpth9JzXGL4yzC3jZShrXZqZHCvWY06Yspni4Sm NfcoTYD5HDLgbkFyo7Ujh7tcHhDmlsKcL8tyG3ZtFDNwDUDmNJFeVjRnkcAvp8Mjl1LyfCNrmJu5s4nt WGGkERUgsZuah0liCWC3ASOtP7E1pCMnp9zdFCywYX FeuDI0wifdFUeuCFFrwwS1jsruGFgxLLPinGX7nmrkIMirECTqBuK8sqfiJFcyWVPpCWC3FVuio983OD R1COhuGsruICzyYWSwekBdyxXgnOuoZLEmLSEyCHorRNYlIBdxKRXpJEDzNsHfwSnurXvvmY7fQfYtUv EoQZvcYN7dUTRwS3bqzGAeXDImKMJdD1fmEfWpvH8qgLbdGLawseHjKRaLHWFzBNIfQYUilk9= SPECIMEN SOURCE (test code = 3377) j4qrwCIcVSNzmPIrTmEuEWCzFMBpm8xxJPVxuGAgLtKpCyKjDiAqZyzdzQHxGPOzLyNxk1mvo525sTOb k2acMVLeZwR6rEYtOTXlgOUrK771j5hmp2fdaqTycYG6OEYeCGC6OFmxqnIvkqV9ZTwrwSTuDvC8TMwi orTeQUwxlxYvcrFrAkg4QMZkL067BXZ3lIwdz9uuLI T3SDLqEUMaOvZcFl2qmXMaZ611LYYtFAMAUQOngGb9FFTyygDklxShhGPXv427O506i4veQLDzjoYcrR rHyhhqb0wvY042SARbdTEtrrDuYeHzESRchFLvwYF2VAPxLG7ueqwaVzTuLG6dnpnsBaJsBL9bjhp5Bt PoJO9gpefjVzHcJKbfRQBhxqmiJOLsb5DhmnhmCG0j O4Mnt0N3mD4gvSCiVXTfaGOtWwCzLREjdg6mgSQpSTxik9TiBVT2tkR5oJIxdVMyFIUzBT16Tajvh1Qv IezkUNR9QPNgllSbe8Zrm9opWwYxlhMlJ8vyQ2HxOQNxILUgAKNnLrCuzkJsn6Not0AsbYNvtOf3d9pa AUFqDPLusWmva5igZWN7YPWaH0I9tFRkw7vhPKegBK OgqGI5hslsEVzcSHZrekV8jujoNMrmJSPcyLS5ovxqCRjrZTIgDoN5uiklFWtjIYTcBOW1AItwl222BS U0QSjeHfieOOklOFEuylOlptBvjWvmTLVuEVEpZDljVNJzQPjsKTAbDKAwKfAkiUbxfZiypV2fCeVmJq NcQJxcKO6qGJLmK6vuyIEhGOKmTIUpL0cnHrRnqK1lcJofLLbepwYjSZOdC0H6rStoNYB0 GROSS DESCRIPTION (test code = 3366) e0xceMYoDHSefMKoTmMqFFAyJIVsi7uvLXCnbISaLwQiYlOnYmJqCglanEQcFTTrAxWau1vrt808rXUj o8knURNlXmF9bPLwZINekNByB341ETDlXJjya1pgv9NgELEsoEKhj3L7XBKZdszsxZo5zTzbG01qx5G8 CthzW3sqZBWuAIvwWNGxCWzhsLZoFNZ0ISGgDUC9KE vsraLyzxP6TQtflPZqHtE8RGz8l7cuxAqzPIBeGYK6j7fjZHaucmTnLN5pon2aoDm2p6whnxFfWBZwYU GtwDYOOBHqI1ZrnPndId9tjPm9dYmmTxciUCG8Qqz7TL8vpy84xlp4fPdmSWQawxspEpY1MOawMEYtnm qoAAn7VEobTAUcfJnsPEzpAYUqbdqmNVwtYARcdQej QSesIIFiUqonEJorGWJyUYY8MMjoi592IWI1CSdyw1hgr7vxwNHmUfh4JVRqPhStQgkbYOhpw9Sna0qu HBHgpt1sUDG6eFVxaQcxn6V0dXYtWFFxfVWzlfPsLGSmYbG8WNkpPV7nip13FVWnLYL5tu3lqJLxwPew syMmdSAdVTxnN4GlPVXid499TXMvC9MaYNDkj8V4qk LvOmCcGDYhcDC8ooO7TIAcTMj6yWVwhqW8zwBfaNFaK8vwuM95QsEsnLVmY5YjzP41PjGymWJoK8YtmY 79CrHshLUzD8AkbF01QqNgfJIjJQXdkECoCp7xvHQjrJBqa1JzuAGvIItqY41cg073VAIiwvGsN7wthN FpblxwbGFpblxmMFxmczIwXHFsXHBsYWluXGYwXGZz GhBasTcyoP0uKaEpGgNrDRTVyWNud6WtB8cxTG1pyIJxzwBzTGa7FXYqoG9nc53wDNIttmMsuVGnDIji YCS4xVQgQUZcJDBsSEMwLI30J3DvcrUsZRUrkzJxDZOGMJ51qHOcldCzv0YkPUJve48ekV9uIEBsJQTf jRSbv6p9kK2zRLYnuAMxr9v1xVV8tQRtb6PkNVGzwx Vhrh5xgKibfs5xOJyvSWNrfJWjQPKkJ6ZibgAwEIndXPArry5spSvzDVjkKhDyFQZjYeIfR8R2gEDmvM XcGPReAeUcjSMmUtApjYJjZvSrO07zmCYxIYGztwvxyGUkEIm4sERzZEHpPFZsME8eDWZeu1D5BKU0kP fkwNVtosUpdPTezNW6VJCpEN44kFTphCdsfR3fR2Vsn5G1pBXfOGHoYDHDGE6plAwfLPP8 MICROSCOPIC DESCRIPTION (test code = 3371) i3sjyJHiTTLtqHDgIyQkBEFfLTNfu9ctMVHcpOLtLvVaKrMvMmDcQsupnXPmDAJuKrIia3hqy345xPRl p3jqEICvKwN0qBWeSJLsrILkP422x1jgo5ieexAsbZA0JMQoQAH2GBvdgoBgowH5IRqmuKVkAhE2BJkv gbEfDCkibhOdnrZtDaj3GIOzW586SQC8bWrjd4hwTE T1JTKgAFUcUuHwVf3ufBNpS446DOVgLVANVKPemYc4BPNdemIpmnNuzNUOg116R471z9fgQNZnveGtiX sNqkzmp7qzF002KJLabOFdlaWcWvOcNIQwkSGhrFB1REQsNT8efjqwSsReHI8vqaacVlAmZH7ayjj0Bp PgYU1zixtyUaRiFIfuTHTzmxvsIGElz6HmrdylBW7a R0Cyi7G5vF9ouOZkAOAblPUuToSvLNWqpr7skFEvMAtbh9OnRTY4snA2mUTubWClDABnCX43Gxwle6Hg NzmcSDV1VQLepbEmo7Cfr5sqOkUvwjNcH0dzP1RmMPAbZKGkXBYySaQdrnKxz5Lej8LydPDxpZz8x8cv KLWqTMFtlBczh2dpQOL1PEAkM2D5yUVfy1vvGZqzFN RpuKT2llctJMaaQFTwkcB2qccuSWlaFTSwbTV9ybcxNHoyOZKjQrL9tjfbMWqyFKDnMQW5KFyks110JK Z0PNeeYqetDXatYNLilnZcmxEtuVxuLTKeOEKuDKehRFOkAIgkURKlEMVnBkAomFbnbYsljQ2xKkNmHj HhHJdiIC2dDSOrY9jjwMEhAVOrOXLbT3nnAqDjeA7u uJjmAVuxukKdIYKyXCGzYNT1LQmfTnedaMS4IMUeh3iwTN6khhR4g1AmDRD5oRQbV62bi29uJrRrePWl a7Mnx0a4cJZipNtfmZMkAOZxsVZbF0ziU4MqiRjgKZJny6RbrNPfLR1fSFs8UJnqgrt3VUQyj97yQNGc KajbmoqkVVCbaz9iIeMdRRuaIECwQVUkkoDimI3ssK cqEEJ2wDLlGfrezZNpCLUyU1Qgx36vBwnbRRZjlRXuiT== [facility] [id number] 12:47:00Surgical Pathology Report Case: [id number] Authorizing Provider: Maury Beltran MD Collected: 04/25/2020 11:48 AM Ordering Location: [address] Received: 04/25/2020 03:45 PM Service Pathologist: Mihir Meade MD Specimen: Rectum, Rectum bx RECTUM, BIOPSY:- CHRONIC RADIATION PROCTITIS Signing Pathologist Direct Phone Line: [phone] signed by Mihir Meade MD on 04/26/2020 at 12:47 PMSections show rectal mucosa with mild incr ease in lamina propria fibrosis. There is no acute inflammation, architectural d istortion, granulomas, dysplasia or malignancy.[id number] bleedRectumThe specimen i s received in one part labeled with the patient's name and MRN number correspond ing to requisition slip with the same information. Received in formalin labeled "rectum" is a 0.3 x 0.2 x 0.2 cm [place]-pink irregular piece of tissue which is dahl bmitted entirely in cassette A1. MA/plThe rectal biopsy shows nondysplastic col onic mucosa with dilated telengiectatic vessels and hyalinization. A fibrin thro mbus is present in the superficial sections.CBC with platelet count + automated [id number] 04:23:00* Test Item Value Reference Range Interpretation Comments WBC (test code = 6690-2) 3.8 3.5- 10.5 K/L RBC (test code = 789-8) 2.73 4.63- 6.08 M/L L MCHC (test code = 786-4) 30.2 32.3- 36.5 GM/DL L Hematocrit (test code = 4544-3) 23.5 % 40.1-51 L MCV (test code = 787-2) 86.1 fL 79-92.2 MCH (test code = 785-6) 26.0 pg 25.7-32.2 RDW (test code = 788-0) 15.4 % 11.6-14.4 H Platelets (test code = 777-3) 180 150- 450 K/CU MM MPV (test code = 80418-2) 10.4 fL 9.4-12.4 nRBC (test code = 413) 0 0- 0 /100 WBC % Neutros (test code = 429) 77 % % Lymphs (test code = 430) 12 % % Monos (test code = 431) 8 % % Eos (test code = 432) 3 % % Baso (test code = 437) 1 % # Neutros (test code = 670) 2.89 1.78- 5.38 K/L # Lymphs (test code = 414) 0.45 1.32- 3.57 K/L L # Monos (test code = 415) 0.30 0.30- 0.82 K/L # Eos (test code = 416) 0.10 0.04- 0.54 K/L # Baso (test code = 417) 0.02 0.01- 0.08 K/L Immature Granulocytes-Relative (test code = 2801) 1 % 0-1 Lab Interpretation (test code = 98058-0) Abnormal [facility] W/PLT COUNT & AUTO [id number] 04:23:00* Test Item Value Reference Range Interpretation Comments WHITE BLOOD CELL COUNT (BEAKER) (test code = 775) 3.8 K/ L 3.5- 10.5 RED BLOOD CELL COUNT (BEAKER) (test code = 761) 2.73 M/ L 4.63-6 .08 L HEMOGLOBIN (BEAKER) (test code = 410) 7.1 GM/DL 13.7-17.5 L HEMATOCRIT (BEAKER) (test code = 411) 23.5 % 40.1-51.0 L MEAN CORPUSCULAR VOLUME (BEAKER) (test code = 753) 86.1 fL 79. 0-92.2 MEAN CORPUSCULAR HEMOGLOBIN (BEAKER) (test code = 751) 26.0 pg 25.7-32.2 MEAN CORPUSCULAR HEMOGLOBIN CONC (BEAKER) (test code = 752) 30.2 GM/DL 32.3-36.5 L RED CELL DISTRIBUTION WIDTH (BEAKER) (test code = 412) 15.4 % 11.6-14.4 H PLATELET COUNT (BEAKER) (test code = 756) 180 K/CU MM 150-450 MEAN PLATELET VOLUME (BEAKER) (test code = 754) 10.4 fL 9.4-12 .4 NUCLEATED RED BLOOD CELLS (BEAKER) (test code = 413) 0 /100 WBC 0 -0 NEUTROPHILS RELATIVE PERCENT (BEAKER) (test code = 429) 77 % LYMPHOCYTES RELATIVE PERCENT (BEAKER) (test code = 430) 12 % MONOCYTES RELATIVE PERCENT (BEAKER) (test code = 431) 8 % EOSINOPHILS RELATIVE PERCENT (BEAKER) (test code = 432) 3 % BASOPHILS RELATIVE PERCENT (BEAKER) (test code = 437) 1 % NEUTROPHILS ABSOLUTE COUNT (BEAKER) (test code = 670) 2.89 K/ L 1.78-5.38 LYMPHOCYTES ABSOLUTE COUNT (BEAKER) (test code = 414) 0.45 K/ L 1.32-3.57 L MONOCYTES ABSOLUTE COUNT (BEAKER) (test code = 415) 0.30 K/ L 0. 30-0.82 EOSINOPHILS ABSOLUTE COUNT (BEAKER) (test code = 416) 0.10 K/ L 0.04-0.54 BASOPHILS ABSOLUTE COUNT (BEAKER) (test code = 417) 0.02 K/ L 0. 01-0.08 IMMATURE GRANULOCYTES-RELATIVE PERCENT (BEAKER) (test code = 2801) 1 % 0-1 TISSUE [id number] 17:01:00Surgical Pathology Report Case: [id number] Authorizing Provider: Evelyn Lam MD Collected: 04/24/2020 09:42 AM Ordering Location: [address] Received: 04/25/2020 08:25 AM Service Pathologist: Jessica Harmon MD Specimen: Rectum, random biopsies A. RECTUM, BIOPSY: - RECTAL MUCOSA WITH NO SIGNIFICANT DIAGNOSTIC ALTERATION. - NEGATIVE FOR DYSPLASIA/MALIGNANCY. Signing Pathologist Direct Phone Line: [phone] signed by Jessica Harmon MD on 04/25/2020 at 5:01 [id number].Rectum Received in formalin labeled with the patient's name, accession number and "rectum" are two santiago-pink tissue fragments measuring up to 0.2 cm in greatest dimension, which are filtered and submitted in toto in A1. PA/ewThere are abundant plasma cells in the lamina propria, which is most likely a non-specific finding. [facility], Department of Pathology, [address] [place] [id number], [facility]lr[facility], [facility], [address] [place] [address], PwpeexSaint Elizabeth Community Hospital, Department of Pathology, [address] [place] [address], WGXXTUHMEA AND [id number] 11:05:00* Test Item Value Reference Range Interpretation Comments HEMOGLOBIN (BEAKER) (test code = 410) 7.9 GM/DL 13.7-17.5 L HEMATOCRIT (BEAKER) (test code = 411) 25.9 % 40.1-51.0 L Detention Deputy ID - [id number] Metabolic [id number] 05:14:00* Test Item Value Reference Range Interpretation Comments Sodium (test code = 2951-2) 139 meq/L 136-145 Potassium (test code = 2823-3) 4.4 meq/L 3.5-5.1 Chloride (test code = 2075-0) 110 meq/L 98-107 H CO2 (test code = 2027-9) 23 meq/L 22-29 BUN (test code = 3094-0) 12 mg/dL 7-21 Creatinine (test code = 2160-0) 1.06 mg/dL 0.57-1.25 Glucose (test code = 2345-7) 86 mg/dL 70-105 Calcium (test code = 92963-7) 7.6 mg/dL 8.4-10.2 L EGFR (test code = 49603-7) 69 mL/min/1.73 sq m ESTIMATED GFR IS NOT ACCURATE CREATININE CLEARANCE IN PREDICTING GLOMERULAR FILTRATION RATE. ESTIMATED GFR IS NOT APPLICABLE FOR DIALYSIS PATIENTS. RAMIREZ (test code = RAMIREZ) Detention Deputy ID - EDASI Lab Interpretation (test code = 26963-8) [facility]normal [facility] [id number] 05:14:00* Test Item Value Reference Range Interpretation Comments SODIUM (BEAKER) (test code = 381) 139 meq/L 136-145 POTASSIUM (BEAKER) (test code = 379) 4.4 meq/L 3.5-5.1 CHLORIDE (BEAKER) (test code = 382) 110 meq/L 98-107 H CO2 (BEAKER) (test code = 355) 23 meq/L 22-29 BLOOD UREA NITROGEN (BEAKER) (test code = 354) 12 mg/dL 7-21 CREATININE (BEAKER) (test code = 358) 1.06 mg/dL 0.57-1.25 GLUCOSE RANDOM (BEAKER) (test code = 652) 86 mg/dL 70-105 CALCIUM (BEAKER) (test code = 697) 7.6 mg/dL 8.4-10.2 L EGFR (BEAKER) (test code = 1092) 69 mL/min/1.73 sq m ESTIMATED GFR IS NOT ACCURATE CREATININE CLEARANCE IN PREDICTING GLOMERULAR FILTRATION RATE. ESTIMATED GFR IS NOT APPLICABLE FOR DIALYSIS PATIENTS. Detention Deputy ID - EDASICBC W/PLT COUNT & AUTO [id number] 04:33:00* Test Item Value Reference Range Interpretation Comments WHITE BLOOD CELL COUNT (BEAKER) (test code = 775) 3.3 K/ L 3.5- 10.5 L RED BLOOD CELL COUNT (BEAKER) (test code = 761) 2.62 M/ L 4.63-6 .08 L HEMOGLOBIN (BEAKER) (test code = 410) 6.8 GM/DL 13.7-17.5 L HEMATOCRIT (BEAKER) (test code = 411) 22.4 % 40.1-51.0 L MEAN CORPUSCULAR VOLUME (BEAKER) (test code = 753) 85.5 fL 79. 0-92.2 MEAN CORPUSCULAR HEMOGLOBIN (BEAKER) (test code = 751) 26.0 pg 25.7-32.2 MEAN CORPUSCULAR HEMOGLOBIN CONC (BEAKER) (test code = 752) 30.4 GM/DL 32.3-36.5 L RED CELL DISTRIBUTION WIDTH (BEAKER) (test code = 412) 15.4 % 11.6-14.4 H PLATELET COUNT (BEAKER) (test code = 756) 168 K/CU MM 150-450 MEAN PLATELET VOLUME (BEAKER) (test code = 754) 10.2 fL 9.4-12 .4 NUCLEATED RED BLOOD CELLS (BEAKER) (test code = 413) 0 /100 WBC 0 -0 NEUTROPHILS RELATIVE PERCENT (BEAKER) (test code = 429) 68 % LYMPHOCYTES RELATIVE PERCENT (BEAKER) (test code = 430) 16 % MONOCYTES RELATIVE PERCENT (BEAKER) (test code = 431) 11 % EOSINOPHILS RELATIVE PERCENT (BEAKER) (test code = 432) 4 % BASOPHILS RELATIVE PERCENT (BEAKER) (test code = 437) 0 % NEUTROPHILS ABSOLUTE COUNT (BEAKER) (test code = 670) 2.22 K/ L 1.78-5.38 LYMPHOCYTES ABSOLUTE COUNT (BEAKER) (test code = 414) 0.51 K/ L 1.32-3.57 L MONOCYTES ABSOLUTE COUNT (BEAKER) (test code = 415) 0.36 K/ L 0. 30-0.82 EOSINOPHILS ABSOLUTE COUNT (BEAKER) (test code = 416) 0.13 K/ L 0.04-0.54 BASOPHILS ABSOLUTE COUNT (BEAKER) (test code = 417) 0.01 K/ L 0. 01-0.08 IMMATURE GRANULOCYTES-RELATIVE PERCENT (BEAKER) (test code = 2801) 1 % 0-1 Prepare Leuko-Red [id number] 23:54:00* Test Item Value Reference Range Interpretation Comments CROSSMATCH (test code = 2264) COMPATIBLE Unit ABO (test code = 3126259) A Neg UNIT NUMBER (test code = 934-0) [id number] Status (test code = 2016633) TX_TIMEINCHART Blood Bank Product (test code = 2263) RED BLOOD CELLS PRODUCT CODE (test code = 933-2) [id number] [facility] [id number] 08:01:00* Test Item Value Reference Range Interpretation Comments SODIUM (BEAKER) (test code = 381) 137 meq/L 136-145 POTASSIUM (BEAKER) (test code = 379) 4.2 meq/L 3.5-5.1 CHLORIDE (BEAKER) (test code = 382) 106 meq/L 98-107 CO2 (BEAKER) (test code = 355) 21 meq/L 22-29 L BLOOD UREA NITROGEN (BEAKER) (test code = 354) 15 mg/dL 7-21 CREATININE (BEAKER) (test code = 358) 1.16 mg/dL 0.57-1.25 GLUCOSE RANDOM (BEAKER) (test code = 652) 88 mg/dL 70-105 CALCIUM (BEAKER) (test code = 697) 8.3 mg/dL 8.4-10.2 L EGFR (BEAKER) (test code = 1092) 63 mL/min/1.73 sq m ESTIMATED GFR IS NOT ACCURATE CREATININE CLEARANCE IN PREDICTING GLOMERULAR FILTRATION RATE. ESTIMATED GFR IS NOT APPLICABLE FOR DIALYSIS PATIENTS. Detention Deputy ID - NTPCBC W/PLT COUNT & AUTO [id number] 06:58:00* Test Item Value Reference Range Interpretation Comments WHITE BLOOD CELL COUNT (BEAKER) (test code = 775) 3.8 K/ L 3.5- 10.5 RED BLOOD CELL COUNT (BEAKER) (test code = 761) 3.01 M/ L 4.63-6 .08 L HEMOGLOBIN (BEAKER) (test code = 410) 7.9 GM/DL 13.7-17.5 L HEMATOCRIT (BEAKER) (test code = 411) 26.1 % 40.1-51.0 L MEAN CORPUSCULAR VOLUME (BEAKER) (test code = 753) 86.7 fL 79. 0-92.2 MEAN CORPUSCULAR HEMOGLOBIN (BEAKER) (test code = 751) 26.2 pg 25.7-32.2 MEAN CORPUSCULAR HEMOGLOBIN CONC (BEAKER) (test code = 752) 30.3 GM/DL 32.3-36.5 L RED CELL DISTRIBUTION WIDTH (BEAKER) (test code = 412) 15.4 % 11.6-14.4 H PLATELET COUNT (BEAKER) (test code = 756) 217 K/CU MM 150-450 MEAN PLATELET VOLUME (BEAKER) (test code = 754) 11.4 fL 9.4-12 .4 NUCLEATED RED BLOOD CELLS (BEAKER) (test code = 413) 0 /100 WBC 0 -0 NEUTROPHILS RELATIVE PERCENT (BEAKER) (test code = 429) 70 % LYMPHOCYTES RELATIVE PERCENT (BEAKER) (test code = 430) 15 % MONOCYTES RELATIVE PERCENT (BEAKER) (test code = 431) 10 % EOSINOPHILS RELATIVE PERCENT (BEAKER) (test code = 432) 4 % BASOPHILS RELATIVE PERCENT (BEAKER) (test code = 437) 1 % NEUTROPHILS ABSOLUTE COUNT (BEAKER) (test code = 670) 2.67 K/ L 1.78-5.38 LYMPHOCYTES ABSOLUTE COUNT (BEAKER) (test code = 414) 0.56 K/ L 1.32-3.57 L MONOCYTES ABSOLUTE COUNT (BEAKER) (test code = 415) 0.39 K/ L 0. 30-0.82 EOSINOPHILS ABSOLUTE COUNT (BEAKER) (test code = 416) 0.16 K/ L 0.04-0.54 BASOPHILS ABSOLUTE COUNT (BEAKER) (test code = 417) 0.02 K/ L 0. 01-0.08 IMMATURE GRANULOCYTES-RELATIVE PERCENT (BEAKER) (test code = 2801) 1 % 0-1 HEMOGLOBIN AND [id number] 23:13:00* Test Item Value Reference Range Interpretation Comments HEMOGLOBIN (BEAKER) (test code = 410) 7.2 GM/DL 13.7-17.5 L HEMATOCRIT (BEAKER) (test code = 411) 23.5 % 40.1-51.0 L Detention Deputy ID - [id number]-CoV2/RT-PCR (Asymptomatic ONLY)2020-04-23 19:33:00* Test Item Value Reference Range Interpretation Comments SARS-COV2/RT-PCR (test code = 02266-1) Negative N ot Detected, Negative, See external report for linked test SARS-COV-2 PERFORMING LAB (test code = 67675-1) [facility] MARTIR GUZMÁN (test code = RAMIREZ) Negative result for this ailyn t determines that SARS-CoV-2 RNA was not present in the specimen above the Limit of Detection (LOD). However, Negative results do not preclude SARS-CoV-2 infection and should not be used as the sole basis for treatment or patient management decisions. Negative results must be combined with clinical observations, patient history, and epidemiological information. A false negative result may occur if a specimen is improperly collected, transported or handled. A false negative result should be considered if patient's recent exposures or clinical presentation indicate that COVID-19 (SARS-CoV-2) is likely and diagnostic tests for other causes of illness are negative. Re-testing should be considered in cases of suspected false negatives. The limit of detection for this assay is 800 copies/mL. This SARS CoV-2 test is a real-time RT-PCR test intended for the qualitative detection of nucleic acid from SARS-CoV-2 in a nasopharyngeal swab specimen collected from individuals suspected of COVID-19 by their healthcare provider. This test has not been Food and Drug Administration (FDA) cleared or approved. This is a modified version of an approved Emergency Use Authorization (EUA) and is in the process of review by the FDA. Once authorized by the FDA, the issued EUA will be effective until the declaration that circumstances exist justifying the authorization of the emergency use of in vitro diagnostic tests for detection and/or diagnosis of COVID-19 is terminated under Section 564(b)(2) of the Act or the EUA is revoked under Section 564(g) of the Act. Fact Sheet for Healthcare Providers:https://www.Arkeo/sites/default/files/product/documents/Fact_Shee k_RF_Sogfkmgie_Dnou_ZZQU-JaB-5.pdf Fact Sheet for Healthcare Patients:https://www.Arkeo/sites/default/files/pro duct/documents/Xcpg_Rmunx_Wjadbdou_Ousj_VIZJ-HbJ-3.pdf Performing Laboratory:[facility] [place] [address] [facility])2020-04-23 19:33:00* Test Item Value Reference Range Interpretation Comments SARS-COV2/RT-PCR (test code = 9315969) Negative N ot Detected, Negative, See external report for linked test SARS-COV-2 PERFORMING LAB (test code = 8198464) [facility] M[facility] Negative result for this test determines that SARS-CoV-2 RNA was not present in the specimen above the Limit of Detection (LOD). However, Negative results do n ot preclude SARS-CoV-2 infection and should not be used as the sole basis for tr eatment or patient management decisions. Negative results must be combined with clinical observations, patient history, and epidemiological information. A false negative result may occur if a specimen is improperly collected, transported or handled. A false negative result should be considered if patient's recent expo sures or clinical presentation indicate that COVID-19 (SARS-CoV-2) is likely and diagnostic tests for other causes of illness are negative. Re-testing should b e considered in cases of suspected false negatives.The limit of detection for is assay is 800 copies/mL.This SARS CoV-2 test is a real-time RT-PCR test intend ed for the qualitative detection of nucleic acid from SARS-CoV-2 in a nasopharyn geal swab specimen collected from individuals suspected of COVID-[address] [facility] provider.This test has not been Food and Drug Administration (FDA) clear ed or approved. This is a modified version of an approved Emergency Use Authori zation (EUA) and is in the process of review by the FDA. Once authorized by [facility] FDA, the issued EUA will be effective until the declaration that circumstances exist justifying the authorization of the emergency use of in vitro diagnostic tests for detection and/or diagnosis of COVID-19 is terminated under Section 564 (b)(2) of the Act or the EUA is revoked under Section 564(g) of the Act.Fact She et for Healthcare Providers:https://www.NearbyNow.HubPages/sites/default/files/product/d ocuments/Whfu_Cwxte_MX_Qsmqbvygz_Vgzl_GXPC-KhB-1.pdfFact Sheet for Healthcare Pa mine:https://www.NearbyNow.HubPages/sites/default/files/product/documents/Fact_Sheet_P uwomjph_Demb_AHDC-WhT-8.pdfPerforming Laboratory:[facility] r[address], [place] [address]Lhrniufm [id number] 14:01:00* Test Item Value Reference Range Interpretation Comments Troponin I (test code = 79255-3) <0.01 0-0.03 RAMIREZ (test code = RAMIREZ) Troponin I (TnI) levels must be interpreted in the context of the presenting symptoms and the clinical findings. Elevated TnI levels indicate myocardial damage, but are not specific for ischemic heart disease. Elevated TnI levels are seen in patients with other cardiac conditions (including myocarditis and congestive heart failure), and slight TnI elevations occur in patients with other conditions, including sepsis, renal failure, acidosis, acute neurological disease, and persistent tachyarrhythmia.Detention Deputy ID - NTP Lab Interpretation (test code = 84674-6) Normal [place] [id number] 14:01:00* Test Item Value Reference Range Interpretation Comments TROPONIN I (BEAKER) (test code = 397) < ng/mL 0.00-0.03 Troponin I (TnI) levels must be interpreted in the context of the presenting sym ptoms and the clinical findings. Elevated TnI levels indicate myocardial damage, but are not specific for ischemic heart disease. Elevated TnI levels are seen i n patients with other cardiac conditions (including myocarditis and congestive h eart failure), and slight TnI elevations occur in patients with other conditions , including sepsis, renal failure, acidosis, acute neurological disease, and per sistent tachyarrhythmia.Detention Deputy ID - NTPABORH, [id number] 07:06:00* Test Item Value Reference Range Interpretation Comments ABO Grouping (test code = 2588) A Rh Factor (test code = 2589) NEG [facility] [id number] 06:41:00* Test Item Value Reference Range Interpretation Comments TROPONIN I (BEAKER) (test code = 397) < ng/mL 0.00-0.03 Troponin I (TnI) levels must be interpreted in the context of the presenting sym ptoms and the clinical findings. Elevated TnI levels indicate myocardial damage, but are not specific for ischemic heart disease. Elevated TnI levels are seen i n patients with other cardiac conditions (including myocarditis and congestive h eart failure), and slight TnI elevations occur in patients with other conditions , including sepsis, renal failure, acidosis, acute neurological disease, and per sistent tachyarrhythmia.Detention Deputy ID - DBType and screen, automated ([facility] and [facility] only)2020-04-23 04:50:00* Test Item Value Reference Range Interpretation Comments ABO/RH AUTOMATED (BEAKER) (test code = 2260) A NEGATIVE Ab Scrn (test code = 890-4) NEGATIVE [facility]iumCom[facility] [id number] 03:44:00* Test Item Value Reference Range Interpretation Comments Protein, Total (test code = 2885-2) 6.5 6.0- 8.3 gm/dL Albumin (test code = 41886-1) 3.3 g/dL 3.5-5 L Alkaline Phosphatase (test code = 6768-6) 71 U/L 40-150 Total Bilirubin (test code = 1974-2) 0.2 mg/dL 0.2-1.2 Sodium (test code = 2951-2) 136 meq/L 136-145 Potassium (test code = 2823-3) 4.2 meq/L 3.5-5.1 Chloride (test code = 5-0) 106 meq/L 98-107 CO2 (test code = 2027-9) 23 meq/L 22-29 BUN (test code = 3094-0) 22 mg/dL 7-21 H Creatinine (test code = 2160-0) 1.19 mg/dL 0.57-1.25 Glucose (test code = 2345-7) 129 mg/dL 70-105 H Calcium (test code = 70252-2) 8.0 mg/dL 8.4-10.2 L AST (test code = 1920-8) 20 U/L 5-34 ALT (test code = 1742-6) 9 U/L 6-55 EGFR (test code = 45334-7) 61 mL/min/1.73 sq m ESTIMATED GFR IS NOT ACCURATE CREATININE CLEARANCE IN PREDICTING GLOMERULAR FILTRATION RATE. ESTIMATED GFR IS NOT APPLICABLE FOR DIALYSIS PATIENTS. RAMIREZ (test code = RAMIREZ) Detention Deputy ID - DB Lab Interpretation (test code = 59899-6) Abnormal [facility] Center[facility] [id number] 03:44:00* Test Item Value Reference Range Interpretation Comments TOTAL PROTEIN (BEAKER) (test code = 770) 6.5 gm/dL 6.0-8.3 ALBUMIN (BEAKER) (test code = 1145) 3.3 g/dL 3.5-5.0 L ALKALINE PHOSPHATASE (BEAKER) (test code = 346) 71 U/L 40-150 BILIRUBIN TOTAL (BEAKER) (test code = 377) 0.2 mg/dL 0.2-1.2 SODIUM (BEAKER) (test code = 381) 136 meq/L 136-145 POTASSIUM (BEAKER) (test code = 379) 4.2 meq/L 3.5-5.1 CHLORIDE (BEAKER) (test code = 382) 106 meq/L 98-107 CO2 (BEAKER) (test code = 355) 23 meq/L 22-29 BLOOD UREA NITROGEN (BEAKER) (test code = 354) 22 mg/dL 7-21 H CREATININE (BEAKER) (test code = 358) 1.19 mg/dL 0.57-1.25 GLUCOSE RANDOM (BEAKER) (test code = 652) 129 mg/dL 70-105 H CALCIUM (BEAKER) (test code = 697) 8.0 mg/dL 8.4-10.2 L AST (SGOT) (BEAKER) (test code = 353) 20 U/L 5-34 ALT (SGPT) (BEAKER) (test code = 347) 9 U/L 6-55 EGFR (BEAKER) (test code = 1092) 61 mL/min/1.73 sq m ESTIMATED GFR IS NOT ACCURATE CREATININE CLEARANCE IN PREDICTING GLOMERULAR FILTRATION RATE. ESTIMATED GFR IS NOT APPLICABLE FOR DIALYSIS PATIENTS. Detention Deputy ID - DBCBC W/PLT COUNT & AUTO [id number] 03:16:00* Test Item Value Reference Range Interpretation Comments WHITE BLOOD CELL COUNT (BEAKER) (test code = 775) 3.5 K/ L 3.5- 10.5 RED BLOOD CELL COUNT (BEAKER) (test code = 761) 2.19 M/ L 4.63-6 .08 L HEMOGLOBIN (BEAKER) (test code = 410) 5.6 GM/DL 13.7-17.5 LL HEMATOCRIT (BEAKER) (test code = 411) 18.9 % 40.1-51.0 L MEAN CORPUSCULAR VOLUME (BEAKER) (test code = 753) 86.3 fL 79. 0-92.2 MEAN CORPUSCULAR HEMOGLOBIN (BEAKER) (test code = 751) 25.6 pg 25.7-32.2 L MEAN CORPUSCULAR HEMOGLOBIN CONC (BEAKER) (test code = 752) 29.6 GM/DL 32.3-36.5 L RED CELL DISTRIBUTION WIDTH (BEAKER) (test code = 412) 14.9 % 11.6-14.4 H PLATELET COUNT (BEAKER) (test code = 756) 201 K/CU MM 150-450 MEAN PLATELET VOLUME (BEAKER) (test code = 754) 11.5 fL 9.4-12 .4 NUCLEATED RED BLOOD CELLS (BEAKER) (test code = 413) 0 /100 WBC 0 -0 NEUTROPHILS RELATIVE PERCENT (BEAKER) (test code = 429) 75 % LYMPHOCYTES RELATIVE PERCENT (BEAKER) (test code = 430) 9 % MONOCYTES RELATIVE PERCENT (BEAKER) (test code = 431) 10 % EOSINOPHILS RELATIVE PERCENT (BEAKER) (test code = 432) 4 % BASOPHILS RELATIVE PERCENT (BEAKER) (test code = 437) 0 % NEUTROPHILS ABSOLUTE COUNT (BEAKER) (test code = 670) 2.62 K/ L 1.78-5.38 LYMPHOCYTES ABSOLUTE COUNT (BEAKER) (test code = 414) 0.32 K/ L 1.32-3.57 L MONOCYTES ABSOLUTE COUNT (BEAKER) (test code = 415) 0.36 K/ L 0. 30-0.82 EOSINOPHILS ABSOLUTE COUNT (BEAKER) (test code = 416) 0.15 K/ L 0.04-0.54 BASOPHILS ABSOLUTE COUNT (BEAKER) (test code = 417) 0.01 K/ L 0. 01-0.08 IMMATURE GRANULOCYTES-RELATIVE PERCENT (BEAKER) (test code = 2801) 1 % 0-1 [id number] 03:09:00* Test Item Value Reference Range Interpretation Comments Protime (test code = 5902-2) 14.4 11.9- 14.2 seconds H INR (test code = 6301-6) 1.15 <=5.90 RAMIREZ (test code = RAMIREZ) Effective 02/04/2019: PT Refe rence Range ChangeNew: 11.9- 14.2 Previous: 11.7-14.7 RECOMMENDED COUMADIN/WARFARIN INR THERAPY RANGESSTANDARD DOSE: 2.0-3.0 Includes: PROPHYLAXIS for venous thrombosis, sys temic embolization; TREATMENT for venous thrombosis and/or pulmonary embolus.HIGH RISK: Target INR is 2.5-3.5 for patients wiht mechanical heart valves. Lab Interpretation (test code = 37578-9) Abnormal [facility] CenterPROTHROMBIN TIME/[id number] 03:09:00* Test Item Value Reference Range Interpretation Comments PROTIME (BEAKER) (test code = 759) 14.4 seconds 11.9-14.2 H INR (BEAKER) (test code = 370) 1.15 <=5.90 Effective 02/04/2019: PT Reference Range ChangeNew: 11.9-14.2 Previous: 11.7-14. 7RECOMMENDED COUMADIN/WARFARIN INR THERAPY RANGESSTANDARD DOSE: 2.0-3.0 Include s: PROPHYLAXIS for venous thrombosis, systemic embolization; TREATMENT for venou s thrombosis and/or pulmonary embolus.HIGH RISK: Target INR is 2.5-3.5 for patie nts wiht mechanical heart valves.Blood Culture - Routine (Left Venipuncture) 2019-07-05 08:00:00* Test Item Value Reference Range Interpretation Comments Result (test code = 6463-4) No growth in 5 days [facility]iumBL[facility] [id number] 08:00:00* Test Item Value Reference Range Interpretation Comments CULTURE (BEAKER) (test code = 1095) No growth in 5 days BLOOD [id number] 08:00:00* Test Item Value Reference Range Interpretation Comments CULTURE (BEAKER) (test code = 1095) No growth in 5 days Urine [id number] 09:07:00* Test Item Value Reference Range Interpretation Comments Result (test code = 6463-4) No growth [facility]ium[facility] Panel [id number] 13:17:00* Test Item Value Reference Range Interpretation Comments Human Metapneumovirus (test code = 37176-2) Not detected Not detected, Equivocal Rhinovirus (test code = 58989-3) Not detected Not detected, Equivoc al INFLUENZA A (NO SUBTYPE) (test code = 96420-2) Not detected Not detected, Equivocal Influenza A subtype H1 (test code = 34491-2) Influenza A Subtype H3 (test code = 41089-1) Influenza A Subtype H1-2009 (test code = 47009-6) Influenza B (test code = 97184-0) Not detected Not detected, Equivo paige Respiratory Syncytial Virus (test code = 80546-7) Not detect ed Not detected, Equivocal Parainfluenza Virus 1 (test code = 55795-5) Not detected Not detected, Equivocal Parainfluenza Virus 2 (test code = 10224-9) Not detected Not detected, Equivocal Parainfluenza virus 3 (test code = 53310-4) Not detected Not detected, Equivocal Parainfluenza Virus 4 (test code = 76392-8) Not detected Not detected, Equivocal Adenovirus (test code = 60872-9) Not detected Not detected, Equivoc al Coronavirus 229E (test code = 73640-8) Not detected Not detected, E quivocal Coronavirus HKU1 (test code = 05724-7) Not detected Not detected, E quivocal Coronavirus NL63 (test code = 28492-4) Not detected Not detected, E quivocal Coronavirus OC43 (test code = 63168-5) Not detected Not detected, E quivocal Bordetella Pertussis (test code = 19978-4) Not detected Not d etected, Equivocal Chlamydophila Pneumoniae (test code = 36909-5) Not detected Not detected, Equivocal Mycoplasma Pneumoniae (test code = 91196-1) Not detected Not detected, Equivocal RAMIREZ (test code = RAMIREZ) Other viruses and bacteria n ot targeted by this PCR panel cannot be excluded; therefore clinical correlation and follow up of serology, culture results, and other molecular studies is required. The results are not intended to be used as the sole means for clinical diagnosis or patient management decisions. This sample was tested at the [facility] Molecular Diagnostics Laboratory using the [employer] Networks[employer] Respiratory Panel. It is FDA cleared and has been verified and approved by the [facility] Molecular Diagnostics Laboratory for clinical use on nasopharyngeal swab specimens. The performance of the FilmAr[employer] y RP has not been established in individuals who received influenza vaccine. Recent administration of a nasal influenza vaccine may cause false positive results for Influenza A and/orInfluenza B. [facility] [id number] 13:17:00* Test Item Value Reference Range Interpretation Comments HUMAN METAPNEUMOVIRUS (BEAKER) (test code = 2683) Not detect ed Not detected, Equivocal RHINOVIRUS (BEAKER) (test code = 2684) Not detected Not detected, E quivocal INFLUENZA A (BEAKER) (test code = 2685) Not detected Not detected, Equivocal INFLUENZA A (NO SUBTYPE) (test code = 3606) INFLUENZA A SUBTYPE H1 (BEAKER) (test code = 2686) INFLUENZA A SUBTYPE H3 (BEAKER) (test code = 2687) INFLUENZA A SUBTYPE H1-2009 (BEAKER) (test code = 3198) INFLUENZA B (BEAKER) (test code = 2688) Not detected Not detected, Equivocal RESPIRATORY SYNCYTIAL VIRUS (BEAKER) (test code = 3199) Not detected Not detected, Equivocal PARAINFLUENZA VIRUS 1 (BEAKER) (test code = 2691) Not detect ed Not detected, Equivocal PARAINFLUENZA VIRUS 2 (BEAKER) (test code = 2692) Not detect ed Not detected, Equivocal PARAINFLUENZA VIRUS 3 (BEAKER) (test code = 2693) Not detect ed Not detected, Equivocal PARAINFLUENZA VIRUS 4 (BEAKER) (test code = 3200) Not detect ed Not detected, Equivocal ADENOVIRUS (BEAKER) (test code = 2694) Not detected Not detected, E quivocal CORONAVIRUS 229E (BEAKER) (test code = 3201) Not detected Not detected, Equivocal CORONAVIRUS HKU1 (BEAKER) (test code = 3202) Not detected Not detected, Equivocal CORONAVIRUS NL63 (BEAKER) (test code = 3203) Not detected Not detected, Equivocal CORONAVIRUS OC43 (BEAKER) (test code = 3204) Not detected Not detected, Equivocal BORDETELLA PERTUSSIS (BEAKER) (test code = 3205) Not detecte d Not detected, Equivocal CHLAMYDOPHILA PNEUMONIAE (BEAKER) (test code = 3206) Not det ected Not detected, Equivocal MYCOPLASMA PNEUMONIAE (BEAKER) (test code = 3207) Not detect ed Not detected, Equivocal Other viruses and bacteria not targeted by this PCR panel cannot be excluded; th erefore clinical correlation and follow up of serology, culture results, and ot er molecular studies is required. The results are not intended to be used as the sole means for clinical diagnosis or patient management decisions. This sample was tested at the [facility] Molecular Diagnostics Laboratory using the mytrax rray Respiratory Panel. It is FDA cleared and has been verified and approved by the [facility] Molecular Diagnostics Laboratory for clinical use on nasopharyngeal sw ab specimens.The performance of the FilmArray RP has not been established in ind ividuals who received influenza vaccine. Recent administration of a nasal influ emre vaccine may cause false positive results for Influenza A and/orInfluenza B. BASIC METABOLIC [id number] 10:05:00* Test Item Value Reference Range Interpretation Comments SODIUM (BEAKER) (test code = 381) 138 meq/L 136-145 POTASSIUM (BEAKER) (test code = 379) 4.6 meq/L 3.5-5.1 CHLORIDE (BEAKER) (test code = 382) 109 meq/L 98-107 H CO2 (BEAKER) (test code = 355) 25 meq/L 22-29 BLOOD UREA NITROGEN (BEAKER) (test code = 354) 36 mg/dL 7-21 H CREATININE (BEAKER) (test code = 358) 0.81 mg/dL 0.57-1.25 GLUCOSE RANDOM (BEAKER) (test code = 652) 91 mg/dL 70-105 CALCIUM (BEAKER) (test code = 697) 8.7 mg/dL 8.4-10.2 EGFR (BEAKER) (test code = 1092) 95 mL/min/1.73 sq m ESTIMATED GFR IS NOT ACCURATE CREATININE CLEARANCE IN PREDICTING GLOMERULAR FILTRATION RATE. ESTIMATED GFR IS NOT APPLICABLE FOR DIALYSIS PATIENTS. Rapid Influenza A&B [id number] 16:44:00* Test Item Value Reference Range Interpretation Comments Rapid Influenza A Antigen (test code = 27645-1) Negative Negative, Inconclusive Rapid influenza B Antigen (test code = 39134-0) Negative Negative, Inconclusive Lab Interpretation (test code = 64460-1) [facility] [id number] 16:44:00* Test Item Value Reference Range Interpretation Comments RAPID INFLUENZA A AG (BEAKER) (test code = 1622) Negative Negative, Inconclusive RAPID INFLUENZA B AG (BEAKER) (test code = 1623) Negative Negative, Inconclusive Urinalysis w/Microscopic + Reflex to [id number] 04:12:00* Test Item Value Reference Range Interpretation Comments Color, UA (test code = 5778-6) Yellow Clarity, UA (test code = 5767-9) Hazy Specific Max, UA (test code = 5811-5) 1.021 1.001-1.035 pH, UA (test code = 5803-2) 6.0 5.0-8.0 Protein, UA (test code = 60922-6) 200 mg/dL Negative A Glucose, UA (test code = 365) Negative Negative Ketones, UA (test code = 2514-8) Negative Negative Bilirubin, UA (test code = 31615-8) Negative Negative Blood, UA (test code = 27365-6) Moderate Negative A Nitrite, UA (test code = 5802-4) Negative Negative Leukocytes, UA (test code = 5799-2) Large Negative A Urobilinogen, UA (test code = 87819-8) 0.2 mg/dL 0.2-1 RBC, UA (test code = 15492-1) 20 /HPF WBC, UA (test code = 5821-4) 77 /HPF Mucus (test code = 8247-9) Few Squam Epithel, UA (test code = 91911-0) 1 /HPF Hyaline Casts, UA (test code = 65722-2) 6 /LPF Specimen Source (test code = 2795) Lab Interpretation (test code = 28384-4) Abnormal [facility]FLEX URINE [id number] 04:12:00* Test Item Value Reference Range Interpretation Comments COLOR (BEAKER) (test code = 470) Yellow CLARITY (BEAKER) (test code = 469) Hazy SPECIFIC GRAVITY UA (BEAKER) (test code = 468) 1.021 1.001-1 .035 PH UA (BEAKER) (test code = 467) 6.0 5.0-8.0 PROTEIN UA (BEAKER) (test code = 464) 200 mg/dL Negative A GLUCOSE UA (BEAKER) (test code = 365) Negative Negative KETONES UA (BEAKER) (test code = 371) Negative Negative BILIRUBIN UA (BEAKER) (test code = 462) Negative Negative BLOOD UA (BEAKER) (test code = 461) Moderate Negative A NITRITE UA (BEAKER) (test code = 465) Negative Negative LEUKOCYTE ESTERASE UA (BEAKER) (test code = 466) Large Negat dania A UROBILINOGEN UA (BEAKER) (test code = 463) 0.2 mg/dL 0.2-1.0 RBC UA (BEAKER) (test code = 519) 20 /HPF WBC UA (BEAKER) (test code = 520) 77 /HPF MUCUS (BEAKER) (test code = 1574) Few SQUAMOUS EPITHELIAL (BEAKER) (test code = 516) 1 /HPF HYALINE CASTS (BEAKER) (test code = 514) 6 /LPF SOURCE(BEAKER) (test code = 2795) BASIC METABOLIC [id number] 02:44:00* Test Item Value Reference Range Interpretation Comments SODIUM (BEAKER) (test code = 381) 132 meq/L 136-145 L POTASSIUM (BEAKER) (test code = 379) 4.4 meq/L 3.5-5.1 Specimen slightly hemolyzed CHLORIDE (BEAKER) (test code = 382) 100 meq/L 98-107 CO2 (BEAKER) (test code = 355) 23 meq/L 22-29 BLOOD UREA NITROGEN (BEAKER) (test code = 354) 56 mg/dL 7-21 H CREATININE (BEAKER) (test code = 358) 2.08 mg/dL 0.57-1.25 H Specimen slightly hemolyzed GLUCOSE RANDOM (BEAKER) (test code = 652) 112 mg/dL 70-105 H CALCIUM (BEAKER) (test code = 697) 9.1 mg/dL 8.4-10.2 EGFR (BEAKER) (test code = 1092) 32 mL/min/1.73 sq m ESTIMATED GFR IS NOT ACCURATE CREATININE CLEARANCE IN PREDICTING GLOMERULAR FILTRATION RATE. ESTIMATED GFR IS NOT APPLICABLE FOR DIALYSIS PATIENTS. Lactic acid, [id number] 02:40:00* Test Item Value Reference Range Interpretation Comments Lactate, Venous (test code = 2872) 1.3 mmol/L 0.5-2.2 Lab Interpretation (test code = 43530-3) Normal [facility] Center[facility], [id number] 02:40:00* Test Item Value Reference Range Interpretation Comments LACTATE BLOOD VENOUS (2) (BEAKER) (test code = 2872) 1.3 mmol/L 0 .5-2.2 CBC W/PLT COUNT & AUTO [id number] 02:21:00* Test Item Value Reference Range Interpretation Comments WHITE BLOOD CELL COUNT (BEAKER) (test code = 775) 4.6 K/ L 3.5- 10.5 RED BLOOD CELL COUNT (BEAKER) (test code = 761) 3.64 M/ L 4.63-6 .08 L HEMOGLOBIN (BEAKER) (test code = 410) 11.6 GM/DL 13.7-17.5 L HEMATOCRIT (BEAKER) (test code = 411) 36.3 % 40.1-51.0 L MEAN CORPUSCULAR VOLUME (BEAKER) (test code = 753) 99.7 fL 79. 0-92.2 H MEAN CORPUSCULAR HEMOGLOBIN (BEAKER) (test code = 751) 31.9 pg 25.7-32.2 MEAN CORPUSCULAR HEMOGLOBIN CONC (BEAKER) (test code = 752) 32.0 GM/DL 32.3-36.5 L RED CELL DISTRIBUTION WIDTH (BEAKER) (test code = 412) 13.0 % 11.6-14.4 PLATELET COUNT (BEAKER) (test code = 756) 133 K/CU MM 150-450 L MEAN PLATELET VOLUME (BEAKER) (test code = 754) 10.4 fL 9.4-12 .4 NUCLEATED RED BLOOD CELLS (BEAKER) (test code = 413) 0 /100 WBC 0 -0 NEUTROPHILS RELATIVE PERCENT (BEAKER) (test code = 429) 76 % LYMPHOCYTES RELATIVE PERCENT (BEAKER) (test code = 430) 10 % MONOCYTES RELATIVE PERCENT (BEAKER) (test code = 431) 9 % EOSINOPHILS RELATIVE PERCENT (BEAKER) (test code = 432) 4 % BASOPHILS RELATIVE PERCENT (BEAKER) (test code = 437) 1 % NEUTROPHILS ABSOLUTE COUNT (BEAKER) (test code = 670) 3.48 K/ L 1.78-5.38 LYMPHOCYTES ABSOLUTE COUNT (BEAKER) (test code = 414) 0.46 K/ L 1.32-3.57 L MONOCYTES ABSOLUTE COUNT (BEAKER) (test code = 415) 0.42 K/ L 0. 30-0.82 EOSINOPHILS ABSOLUTE COUNT (BEAKER) (test code = 416) 0.17 K/ L 0.04-0.54 BASOPHILS ABSOLUTE COUNT (BEAKER) (test code = 417) 0.03 K/ L 0. 01-0.08 IMMATURE GRANULOCYTES-RELATIVE PERCENT (BEAKER) (test code = 2801) 0 % 0-1 CT ABD/PEL WO [id number] 19:45:00 [place] [address] Patient Name: TOI CUNHA JR MR #: [id number] : 1950 Age/Sex: 68/M Req #: [id number] Adm Physician: Ordered by: PB NOBLE DO Report #: [id number] Location: [facility] Room/Bed: Procedure: [id number] HOP D/CT ABD/PEL WO CONTRAST-HOPD Exam Date: 06/29/19 Ex am Time: 1925 REPORT STATUS: Signed EXAM: CT Abdomen and Pelvis WITHOUT contrast INDICATION: Low blood press ure. Stage IV prostate cancer. Elevated heart rate. Abdominal pain. 1925 COMPARISON: None. TECHNIQUE: Abdomen and pelvis were scanned ut ilizing a multidetector helical scanner from the lung base to the pubic symphy sis without administration of IV contrast. Absence of intravenous contrast dec reases sensitivity for detection of focal lesions and vascular pathology. Clara nal and sagittal reformations were obtained. Routine protocol was performed. IV CONTRAST: None ORAL CONTRAST: None COMPLICATIO NS: None RADIATION DOSE: Total DLP: 704 mGy*cm Estimated effe ctive dose: (DLP x 0.015 x size factor) mSv CTDIvol has been reviewed. It is below the limits set by the Radiation Protocol Committee (RPC). Dos e modulation, iterative reconstruction, and/or weight based adjustment of the mA/kV was utilized to reduce the radiation dose to as low as reasonably achiev able. FINDINGS: LINES and TUBES: None. LOWER THORAX: Unremarkab le HEPATOBILIARY: No focal hepatic lesions. No biliary ductal dilation . GALLBLADDER: No radio-opaque stones or sludge. No wall thickening. SPLEEN: No splenomegaly. PANCREAS: No focal masses or ductal dilatation. ADRENALS: No adrenal nodules KIDNEYS/URETERS: No hydronephrosis . Large simple appearing right renal cyst. No stones. GI TRACT: No abnor mal distention, wall thickening, or evidence of bowel obstruction. No in flammatory changes are seen in the right lower quadrant of the abdomen. P ELVIC ORGANS/BLADDER: Anterior/suprapubic urinary bladder catheter. The urinar y bladder wall is thickened. LYMPH NODES: No lymphadenopathy. VESSELS: Unremarkable. PERITONEUM / RETROPERITONEUM: No free air or fluid. BON ES: Erosive and sclerotic focus predominantly in the right pelvic bone/ischium consistent with metastatic disease. There is soft tissue thickening in the ri ght pelvic sidewall region likely due to a soft tissue component. This abuts t he urinary bladder. Numerous punctate sclerotic densities throughout the bones may also be due to metastatic deposits. SOFT TISSUES: Unremarkable. IMPRESSION: Erosive and sclerotic focus predominantly in the right pelvic bone/ischium consistent with metastatic disease. There is soft tissue thickening in the right pelvic sidewall region likely due to a soft tissue com ponent. This abuts the urinary bladder. Numerous punctate sclerotic densities throughout the bones may also be due to metastatic deposits. Nuclear medicine bone scan may be of benefit if clinically indicated. Large simple appeari ng right renal cyst. Signed by: Dr. Stefanie North M.D. on 06/29/2019 7:53 PM Dictated By: STEFANIE NORTH MD, MD 52 Transcribed By: MARGIE on 06/29/191952 COPY TO : PB NOBLE DO CXR 2 VIEW - [id number] 19:28:00 [place] [address] Patient Name: TOI CUNHA JR MR #: [id number] : 1950 Age/Sex: 68/M Req #: [id number] Adm Physician: Ordered by: PB NOBLE DO Report #: [id number] Location: [facility] Room/Bed: Procedure: [id number] HOP D/CXR 2 VIEW - HOPD Exam Date: Exam Time: REPORT STATUS: Signed EXAMINATION: CXR 2 VIEW - HOPD INDICATION: Low blood pressure. Increased heart rate COMPARISON: None FINDINGS: TUBES and LINES: None. LUNGS: Lungs are well inflated. Lungs are clear. There is no evidence of pneumonia or pulmonary edema. PLEURA: No pleural effusion or pneumothorax. HEART AND MEDIASTINUM: The cardiomediastinal silhouette is unremarkable. BONES AND SOFT TISSUES: No acute osseous lesion. Soft tissues are u nremarkable. UPPER ABDOMEN: No free air under the diaphragm. IMPRE SSION: No acute thoracic abnormality. Signed by: Sanjay Carney on 06/29/2019 7:28 PM Dictated By: STEFANIE NORTH MD, MD 27 Transcribed By: MARGIE on 06/10 COPY TO: PB NOBLE DO TISSUE [id number] 12:31:00Surgical Pathology Report Case: [id number] Authorizing Provider: Korina Juan MD Collected: 02/05/2019 0949 Ordering Location: [facility] Radiology Main Received: 02/05/2019 1422 Pathologist: Romero Mcdonald MD Specimen: Pubis, right superior pubis ramus PART A RIGHT SUPERIOR PUBIC RAMUS BONE, BIOPSY:METASTATIC CARCINOMA COMPATIBLE WITH PROSTATIC ORIGIN. Signing Pathologist Direct Phone Line: [phone] signed by Romero Mcdonald MD on 02/08/2019 at 12:31 PMImmunohistochemcial studies performed on block A1 demonstrate the tumor cells to be positive for PSA, PSAP, and prostein. The morphologic and immunophenotypic findings are compatible with a carcinoma of prostatic origin. 57171, 83470, 25315, 85314y2Gnehrfrwa neoplasm of prostate metastatic to boneCT bone biopsy Received in formalin labeled with the patient's name, accession number and "right superior and inferior pubic ramus" is an aggregate of multiple pink bone fragments admixed with blood aggregating 0.8 x 0.5 x 0.2 cm. The specimen is entirely submitted A1, following decalcification. CG/ew PERFORMED. The interpretation of this case included the use of immunohistochemistry or special stains.Control Slides Examined: In-house known positive controls were evaluated along with the test tissue. These control slides run alongside of the patients sample show appropriate staining. Internal positive and negative controls when available are evaluated Immunohistochemistry technical testing was performed at [facility], Pathology Laboratory where it was developed and its performance ch aracteristics were determined. It has not been cleared or approved by the U.S. F ood and Drug Administration. The FDA has determined that such clearance or appro ale is not necessary. The test is used for clinical purposes. It should not be r egarded as investigational or for research. This laboratory is certified under t he Clinical Laboratory Improvement Amendments of 1988 (CLIA-88) as qualified to perform high complexity clinical laboratory testing.BLOCK A1- PSA, PSAP, PROSTEI NCT, BIOPSY, [id number] 10:13:00Reason for Exam:->C61, C79.51, R93.89FINAL REPORT INDICATION:68-year-old male with prostate cancer and right pubic bone sclerotic lesion with soft tissue component in the adjacent abductor and obturator externus muscles. COMPARISON:Recent outside facility ([facility]) CT. TECHNIQUE:CT-guided core biopsy of sclerotic lesion in the right pubic bone. FINDINGS: The procedure was explained to the patient and informed consent was signed. The patient was positioned supine and prelimin lilli images confirmed a safe window to the right pubic bone. Timeout was performe d. To sedate the patient Versed and Fentanyl were administered, as described be low. The patient's skin was prepped and draped in standard sterile fashion. 2% l idocaine was used for local anesthesia. Using an anterior approach and CT guidan ce, a 17-gauge introducer needle was advanced into the right pubic bone lesion. An 18-gauge was advanced into the lesion and a core biopsy was obtained and plac ed in preservative. An additional three core biopsies were acquired and placed i n the same preservative. Core biopsies were sent to pathology. Patient tolerated procedure well and was transferred to recovery. PROCEDURAL SEDATION:Procedural sedation was used with Versed 1.5 mg IV and Fentanyl 75 mcg IV administered. The department of radiology nurse was present at the time of procedure. Monitored c ardiorespiratory function during conscious sedation was performed under the radi ologist's supervision. Total monitoring time was approximately 45 minutes. IMPRE SSION: CT-guided core biopsy of right pubic bone sclerotic lesion. Signed: Vern Saleem Verified Date/Time: 02/05/2019 10:13:36 Reading Location: [facility] C013X Ortho Consult Reading Room HROMBIN TIME/[id number] 07:23:00* Test Item Value Reference Range Interpretation Comments PROTIME (BEAKER) (test code = 759) 13.1 seconds 11.9-14.2 INR (BEAKER) (test code = 370) 1.0 <=5.9 Effective 02/04/2019: PT Reference Range ChangeNew: 11.9-14.2 Previous: 11.7-14. 7RECOMMENDED COUMADIN/WARFARIN INR THERAPY RANGESSTANDARD DOSE: 2.0-3.0 Include s: PROPHYLAXIS for venous thrombosis, systemic embolization; TREATMENT for venou s thrombosis and/or pulmonary embolus.HIGH RISK: Target INR is 2.5-3.5 for patie nts wiht mechanical heart valves.BASIC METABOLIC [id number] 07:18:00* Test Item Value Reference Range Interpretation Comments SODIUM (BEAKER) (test code = 381) 138 meq/L 136-145 POTASSIUM (BEAKER) (test code = 379) 4.6 meq/L 3.5-5.1 CHLORIDE (BEAKER) (test code = 382) 103 meq/L 98-107 CO2 (BEAKER) (test code = 355) 25 meq/L 22-29 BLOOD UREA NITROGEN (BEAKER) (test code = 354) 27 mg/dL 7-21 H CREATININE (BEAKER) (test code = 358) 0.98 mg/dL 0.57-1.25 GLUCOSE RANDOM (BEAKER) (test code = 652) 113 mg/dL 70-105 H CALCIUM (BEAKER) (test code = 697) 10.0 mg/dL 8.4-10.2 EGFR (BEAKER) (test code = 1092) 76 mL/min/1.73 sq m ESTIMATED GFR IS NOT ACCURATE CREATININE CLEARANCE IN PREDICTING GLOMERULAR FILTRATION RATE. ESTIMATED GFR IS NOT APPLICABLE FOR DIALYSIS PATIENTS. CBC W/PLT COUNT & AUTO [id number] 07:02:00* Test Item Value Reference Range Interpretation Comments WHITE BLOOD CELL COUNT (BEAKER) (test code = 775) 4.2 K/ L 3.5- 10.5 RED BLOOD CELL COUNT (BEAKER) (test code = 761) 3.76 M/ L 4.63-6 .08 L HEMOGLOBIN (BEAKER) (test code = 410) 11.6 GM/DL 13.7-17.5 L HEMATOCRIT (BEAKER) (test code = 411) 36.2 % 40.1-51.0 L MEAN CORPUSCULAR VOLUME (BEAKER) (test code = 753) 96.3 fL 79. 0-92.2 H MEAN CORPUSCULAR HEMOGLOBIN (BEAKER) (test code = 751) 30.9 pg 25.7-32.2 MEAN CORPUSCULAR HEMOGLOBIN CONC (BEAKER) (test code = 752) 32.0 GM/DL 32.3-36.5 L RED CELL DISTRIBUTION WIDTH (BEAKER) (test code = 412) 11.9 % 11.6-14.4 PLATELET COUNT (BEAKER) (test code = 756) 139 K/CU MM 150-450 L MEAN PLATELET VOLUME (BEAKER) (test code = 754) 10.1 fL 9.4-12 .4 NUCLEATED RED BLOOD CELLS (BEAKER) (test code = 413) 0 /100 WBC 0 -0 NEUTROPHILS RELATIVE PERCENT (BEAKER) (test code = 429) 70 % LYMPHOCYTES RELATIVE PERCENT (BEAKER) (test code = 430) 18 % MONOCYTES RELATIVE PERCENT (BEAKER) (test code = 431) 10 % EOSINOPHILS RELATIVE PERCENT (BEAKER) (test code = 432) 2 % BASOPHILS RELATIVE PERCENT (BEAKER) (test code = 437) 1 % NEUTROPHILS ABSOLUTE COUNT (BEAKER) (test code = 670) 2.94 K/ L 1.78-5.38 LYMPHOCYTES ABSOLUTE COUNT (BEAKER) (test code = 414) 0.74 K/ L 1.32-3.57 L MONOCYTES ABSOLUTE COUNT (BEAKER) (test code = 415) 0.41 K/ L 0. 30-0.82 EOSINOPHILS ABSOLUTE COUNT (BEAKER) (test code = 416) 0.09 K/ L 0.04-0.54 BASOPHILS ABSOLUTE COUNT (BEAKER) (test code = 417) 0.02 K/ L 0. 01-0.08 IMMATURE GRANULOCYTES-RELATIVE PERCENT (BEAKER) (test code = 2801) 0 % 0-1 BASIC METABOLIC [id number] 23:47:00* Test Item Value Reference Range Interpretation Comments SODIUM (test code = NA) 139 mmol/L 136-145 N POTASSIUM (test code = K) 3.8 mmol/L 3.5-5.1 N CHLORIDE (test code = CL) 105.0 mmol/L 98-107 N CARBON DIOXIDE (test code = CO2) 24.0 mmol/L 21-32 N ANION GAP (test code = GAP) 13.8 10-20 N GLUCOSE (test code = GLU) 100 mg/dL 74-106 N BLOOD UREA NITROGEN (test code = BUN) 22 mg/dL 7-18 H GLOMERULAR FILTRATION RATE (test code = GFR) > 60 mL/min >=60 Estimated GFR by using Modified MDRD formula.Chronic kidney disease is defined as either kidney damageor GFR <60 mL/min/1.73 m2 for >3 months. CREATININE (test code = CREAT) 1.10 mg/dL 0.7-1.3 N BUN/CREATININE RATIO (test code = BUN/CREA) 20.0 10-20 N CALCIUM (test code = CA) 9.3 mg/dL 8.5-10.1 N BASIC METABOLIC [id number] 23:46:00* Test Item Value Reference Range Interpretation Comments SODIUM (test code = NA) 139 mmol/L 136-145 N POTASSIUM (test code = K) 3.8 mmol/L 3.5-5.1 N CHLORIDE (test code = CL) 105.0 mmol/L 98-107 N CARBON DIOXIDE (test code = CO2) mmol/L 21-32 ANION GAP (test code = GAP) 10-20 GLUCOSE (test code = GLU) mg/dL 74-106 BLOOD UREA NITROGEN (test code = BUN) mg/dL 7-18 GLOMERULAR FILTRATION RATE (test code = GFR) mL/min >=60 CREATININE (test code = CREAT) mg/dL 0.7-1.3 BUN/CREATININE RATIO (test code = BUN/CREA) 10-20 CALCIUM (test code = CA) mg/dL 8.5-10.1 URINALYSIS [id number] 23:39:00* Test Item Value Reference Range Interpretation Comments UA COLOR (test code = COLU) COLORLESS YELLOW A UA APPEARANCE (test code = APPU) CLEAR CLEAR UA GLUCOSE DIPSTICK (test code = DGLUU) NEGATIVE mg/dL NEGATIVE UA BILIRUBIN DIPSTICK (test code = BILU) NEGATIVE mg/dL NEGATIVE UA KETONE DIPSTICK (test code = KETU) NEGATIVE mg/dL NEGATIVE UA SPECIFIC GRAVITY (test code = SGU) 1.007 1.001-1.035 UA BLOOD DIPSTICK (test code = MANISHA) Negative mg/dL NEGATIVE UA PH DIPSTICK (test code = CHARO) 6.5 5.0-8.0 UA PROTEIN DIPSTICK (test code = PROU) NEGATIVE mg/dL NEGATIVE UA UROBILINIOGEN DIPSTICK (test code = URO) Normal mg/dL NEGATIVE UA NITRITE DIPSTICK (test code = MORGAN) NEGATIVE NEGATIVE UA LEUKOCYTE ESTERASE W REFLEX (test code = LEUUR) NEGATIVE Mary Lou/uL NEGATIVE UA WBC (test code = WBCU) 0-5 per HPF 0-5 UA RBC (test code = RBCU) 0-2 #/HPF 0-5 UA EPITHELIAL CELLS (test code = EPIU) Few (2-5/hpf) per HPF FEW UA BACTERIA (test code = BACU) FEW #/HPF NONE UA MUCUS (test code = MUCU) FEW #/LPF FEW Urine Source? CatheterCBC W/AUTO [id number] 23:29:00* Test Item Value Reference Range Interpretation Comments WHITE BLOOD CELL (test code = WBC) 3.7 K/mm3 4.5-12.5 L RED BLOOD CELL (test code = RBC) 3.76 mill/mm3 4.0-5.8 L HEMOGLOBIN (test code = HGB) 11.4 gram/dL 13.0-17.5 L HEMATOCRIT (test code = HCT) 34.2 % 42.0-52.0 L MEAN CELL VOLUME (test code = MCV) 91.0 fL 80-98 N MEAN CELL HGB (test code = MCH) 30.3 picogram 27.0-33.0 N MEAN CELL HGB CONCETRATION (test code = MCHC) 33.3 gram/dL 33.0-36. 0 N RED CELL DISTRIBUTION WIDTH (test code = RDW) 11.7 % 11.6-16. 2 N RED CELL DISTRIBUTION WIDTH SD (test code = RDW-SD) 39.0 fL 37 .0-51.0 N PLATELET COUNT (test code = PLT) 135 K/mm3 150-450 L MEAN PLATELET VOLUME (test code = MPV) 10.5 fL 6.7-11.0 N NEUTROPHIL % (test code = NT%) 67.8 % 39.0-69.0 N IMMATURE GRANULOCYTE % (test code = IG%) 0.5 % 0.0-5.0 N LYMPHOCYTE % (test code = LY%) 19.7 % 25.0-55.0 L MONOCYTE % (test code = MO%) 9.3 % 0.0-10.0 N EOSINOPHIL % (test code = EO%) 2.2 % 0.0-5.0 N BASOPHIL % (test code = BA%) 0.5 % 0.0-1.0 N NUCLEATED RBC % (test code = NRBC%) 0.0 % 0-0 N NEUTROPHIL # (test code = NT#) 2.47 K/mm3 1.8-7.7 N IMMATURE GRANULOCYTE # (test code = IG#) 0.02 x10 3/uL 0-0.03 N LYMPHOCYTE # (test code = LY#) 0.72 K/mm3 1.0-5.0 L MONOCYTE # (test code = MO#) 0.34 K/mm3 0-0.8 N EOSINOPHIL # (test code = EO#) 0.08 K/mm3 0.0-0.5 N BASOPHIL # (test code = BA#) 0.02 K/mm3 0.0-0.2 N NUCLEATED RBC # (test code = NRBC#) 0.00 K/mm3 0.0-0.1 N MANUAL DIFF REQUIRED (test code = MDIFF) NO URINALYSIS [id number] 23:19:00* Test Item Value Reference Range Interpretation Comments UA COLOR (test code = COLU) COLORLESS YELLOW A UA APPEARANCE (test code = APPU) CLEAR CLEAR UA GLUCOSE DIPSTICK (test code = DGLUU) NEGATIVE mg/dL NEGATIVE UA BILIRUBIN DIPSTICK (test code = BILU) NEGATIVE mg/dL NEGATIVE UA KETONE DIPSTICK (test code = KETU) NEGATIVE mg/dL NEGATIVE UA SPECIFIC GRAVITY (test code = SGU) 1.007 1.001-1.035 UA BLOOD DIPSTICK (test code = MANISHA) Negative mg/dL NEGATIVE UA PH DIPSTICK (test code = CHARO) 6.5 5.0-8.0 UA PROTEIN DIPSTICK (test code = PROU) NEGATIVE mg/dL NEGATIVE UA UROBILINIOGEN DIPSTICK (test code = URO) Normal mg/dL NEGATIVE UA NITRITE DIPSTICK (test code = MORGAN) NEGATIVE NEGATIVE UA LEUKOCYTE ESTERASE W REFLEX (test code = LEUUR) NEGATIVE Mary Lou/uL NEGATIVE UA WBC (test code = WBCU) per HPF 0-5 UA RBC (test code = RBCU) per HPF 0-5 UA EPITHELIAL CELLS (test code = EPIU) per HPF Few UA BACTERIA (test code = BACU) per HPF NONE Urine Source? Catheter
--- NOTE | 2020-05-19 10:29 | NUR ---
PATIENTS WAS NOT HAPPY WITH THE AMOUNT OF TIME HE WOULD BE HERE GETTING BLOOD FOR HGB IN THE 5 RANGE. SHE HAD BEEN TOLD AT THE DOCTORS OFFICE THAT HE WOULD BE HERE A FEW HOURS. SHE SPOKE WITH Maria G ADAM, LET US KNOW HE WOULD BE LEAVING TO GO SOMEWHERE ELSE.
--- NOTE | 2020-05-19 10:50 | Emergency Department Note ---
History of Present Illnes History of Present Illness Chief Complaint: General Medicine Complaints History of Present Illness This is a 69 year old male arrived to the ED with complaints concerns of low hemoglobin. Patient missed generalized malaise and weakness. Patient states he was sent to the ED was primary care doctor. Chief Complaint Comment PATIENT CALLED BY DR. AU AND TOLD TO GO TO E.R. TO RECEIVE BLOOD TX. HIS HGB IS IN 5?. PATIENT PALE. PATIENT DENIES ANY CHEST PAIN OR SHORTNESS OF BREATH Historian: Patient Arrival Mode: Car Additional Treatment [employer]: NONE Onset (how long ago): day(s) Severity: mild Duration (how long): day(s) Past Medical/Family History Physician Review I have reviewed the patient's past medical and family history. Any updates have been documented here. Past Medical History Recent Fever: No Clinical Suspicion of Infectio: No New/Unexplained Change in Ment: No Past Medical History: Hypertension, Anemia Past Surgical History: None Other Last Tetanus: UNK Physical Exam Related Data Allergies: Coded Allergies: No Known Allergies (Unverified , 05/19/20) Triage Vital Signs Vital Signs Date Time Temp Pulse Resp B/P (MAP) Pulse Ox O2 Delivery O2 Flow Rate FiO2 05/19/20 09:57 97.6 76 18 130/62 100 Room Air Vital signs reviewed: Yes Physical Exam CONSTITUTIONAL Constitutional: Present well-developed, Present well-nourished, Present other (pale) HENT HENT: Present normocephalic, Present atraumatic, Present oropharynx clear/moist, Present nose normal HENT L/R: Present left ext ear normal, Present right ext ear normal EYES Eyes: Reports PERRL, Reports conjunctivae normal NECK Neck: Present ROM normal PULMONARY Pulmonary: Present effort normal, Present breath sounds normal CARDIOVASCULAR Cardiovascular: Present regular rhythm, Present heart sounds normal, Present capillary refill normal, Present normal rate GASTROINTESTINAL Abdominal: Present soft, Present nontender, Present bowel sounds normal GENITOURINARY Genitourinary: Present exam deferred SKIN Skin: Present warm, Present dry MUSCULOSKELETAL Musculoskeletal: Present ROM normal NEUROLOGICAL Neurological: Present alert, Present oriented x 3, Present no gross motor or sensory deficits PSYCHOLOGICAL Psychological: Present mood/affect normal, Present judgement normal Assessment & Plan Medical Decision Making MDM 69-year-old male arrives to the ED with concerns of low hemoglobin by his primary care doctor. Patient pale otherwise admitted in stable. Patient decided he would like to be discharged and follow up with his primary care doctor instead intervention outpatient transfusion. Patient hemodynamically stable at time of discharge. Patient understands the risk of leaving the ED without full treatment, competent for decision-making and stable at time of discharge. Patient states she is welcome to return to the ED at any time. Assessment & Plan Final Impression: (1) Anemia Depart Disposition: HOME, SELF-CARE Last Vital Signs Date Time Temp Pulse Resp B/P (MAP) Pulse Ox O2 Delivery O2 Flow Rate FiO2 05/19/20 09:57 97.6 76 18 130/62 100 Room Air TERRY BIRD DO May 19, 2020 10:50
== END 2020-05-19 11:23 | disposition left against medical advice (07) ==
LOC: ER 10:05
DX: D64.9 Anemia, unspecified (principal); I10 Essential (primary) hypertension